=== PATIENT | female | born 1980 | race African-American/Black ===

== ENCOUNTER 2020-08-11 12:19 | Outpatient (REF) | payer OTHER, SELFPAY | END 2020-08-11 12:20 | disposition home or self-care (01) | LOC: HO.LAB 12:19 | PROVIDERS: Visit Provider Internal Medicine | DX: Z20.822 Contact with and (suspected) exposure to COVID-19 (principal) | CPT/HCPCS: C9803; U0003; U0005 ==

== ENCOUNTER 2020-08-17 14:04 | Outpatient (REF) | payer OTHER, SELFPAY ==
[2020-08-17 14:35] LABS: COVID-19 Test Negative (Negative)
== END 2020-08-17 14:05 | disposition home or self-care (01) ==
LOC: HO.LAB 14:04
PROVIDERS: Visit Provider Internal Medicine
DX: Z20.822 Contact with and (suspected) exposure to COVID-19 (principal)
CPT/HCPCS: 36415; 87635; C9803

== ENCOUNTER 2020-10-20 15:08 | Outpatient (REF) | payer OTHER, SELFPAY | END 2020-10-20 15:09 | disposition home or self-care (01) | LOC: HO.LAB 15:08 | PROVIDERS: Visit Provider Internal Medicine | DX: Z20.822 Contact with and (suspected) exposure to COVID-19 (principal) | CPT/HCPCS: C9803; U0003; U0005 ==

== ENCOUNTER 2020-12-15 13:29 | Outpatient (REF) | payer OTHER, SELFPAY ==
[2020-12-15 16:04] LABS: COVID-19 Test Negative (Negative)
== END 2020-12-15 13:30 | disposition home or self-care (01) ==
LOC: HO.LAB 13:29
PROVIDERS: PCP Internal Medicine; Visit Provider Internal Medicine
DX: Z20.822 Contact with and (suspected) exposure to COVID-19 (principal)
CPT/HCPCS: 36415; 87635; C9803

== ENCOUNTER 2020-12-30 06:46 | Emergency (ER) | payer OTHER, SELFPAY ==
[2020-12-30 07:05] VITALS: BP 120/74; PULSE 84; RESP 16; TEMP 37; O2SAT 100; BMI 27.3
--- NOTE | 2020-12-30 07:50 | ED.SKABFB ---
HPI - Skin/Abscess/Foreign Bdy General Chief complaint: Skin/Abscess/Foreign Body Stated complaint: rash/covid+ 12/20 Time Seen by Provider: 12/30/20 07:18 Source: patient Mode of arrival: ambulatory Limitations: no limitations History of Present Illness HPI narrative: Patient comes emergency room complaining of an itchy rash in her forearms and lower extremities. Patient states that she tested for COVID positive approximately 11 days ago. Patient states that she has a rash that started yesterday. Patient denies fever, no chills, denies any allergies to foods. Related Data Previous Rx's Medication Instructions Recorded acetaminophen 500 mg tablet 500 mg PO Q6H PRN 14 Days #56 tab 12/21/20 hydrocortisone 1 % topical cream 1 appl TOPICAL TID PRN #28.35 g 12/30/20 (Cortisone (hydrocortisone)) prednisone 20 mg tablet 20 mg PO DAILY #4 tab 12/30/20 Allergies Allergy/AdvReac Type Severity Reaction Status Date / Time aspirin [ASPIRIN] Allergy Intermediate SWELLING Unverified 01/08/20 17:45 penicillin V Allergy Unknown lip Verified 02/18/20 10:38 swelling amitriptyline AdvReac Unknown Unknown Verified 02/18/20 10:38 Review of Systems Review of Systems: Constitutional : No Weight loss, No Fever, No Chills, No Night Sweats, No Fatigue, No Malaise ENT/Mouth : No Hearing loss, No Ear Pain, No Nasal Congestion, No Sinus Pain, No Hoarseness, No sore throat, No Rhinorrhea, No Swallowing Difficulty Eyes: No Eye Pain, No Swelling, No Redness, No Foreign Body, No Discharge, No Vision Changes Cardiovascular : No Chest Pain, No SOB, No Dyspnea on Exertion, No Orthopnea, No Edema, No Palpitations Respiratory : No Cough, No Sputum, No Wheezing, No Smoke Exposure, No Dyspnea Gastrointestinal : No Nausea, No Vomiting, No Diarrhea, No Constipation, No abdominal Pain, No Hematochezia, No Melena Genitourinary : no irregular bleeding, No Dysuria, No Urinary Frequency, No Hematuria, No Urinary Incontinence, No Urgency, No Flank Pain, No Urinary Flow Changes, No Hesitancy Musculoskeletal : No joint pain, No Myalgias, No Joint Swelling Skin : Complaining of itchy rash in her upper extremities and lower extremities Neuro : No Weakness, No Numbness, No Paresthesias, No Loss of Consciousness, No Dizziness, No Headache Psych : No Anxiety/Panic, No Depression, No SI/HI/AH/VH, No Social Issues, Heme/Lymph: No Bruising, No Bleeding,No Lymphadenopathy Endocrine : No Polyuria, No Polydipsia, No Temperature Intolerance [facility] Past Medical History Surgical History History of section Family History Family History (Updated 02/18/20 @ 10:40 by Kaylynn Brady Zaria) Father Diabetes Hypertension Mother Hypertension Rheumatoid arthritis Paternal Grandfather Throat cancer Social History Social History Advance Directives: Yes Advance Directives Information Provided: No Advance Directives on File: No Patient : No Physical Exam Vital Signs: Vital Signs: Last Vital Signs Temp 98.6 F 12/30/20 07:05 Pulse 84 12/30/20 07:05 Resp 16 12/30/20 07:05 BP 120/74 12/30/20 07:05 Pulse Ox 100 12/30/20 07:05 Body Mass Index 27.3 Const: Other: Appearance: Alert. Oriented X3. No acute distress. Eyes: Pupils equal, round and reactive to light. ENT: Pharynx normal. Neck: Normal inspection. Neck supple. No lymph nodes noted. No crepitus CVS: Normal heart rate and rhythm. Pulses normal. Normal S1 and S2 Respiratory: No respiratory distress. Breath sounds normal. No Wheezing. No rales Abdomen: Soft and nontender. No rigidity. No distention. good BS x4 Skin: Skin warm and dry. Hives in forearms and arms, and thighs, none in abdomen or back Extremities: No lower extremity edema. No lower extremity edema. No Lacerations. No Rash Neuro: Oriented X 3. No motor deficit. No sensory deficit. Moving all extermities. No slurred speech. Course Course Course Narrative: Patient's COVID-19 results are still positive. Patient's rash is minimal. Patient will be provided with 1 dose of oral prednisone in the emergency room, patient will have more steroids at home and topical hydrocortisone. MDM - Skin/Abscess/Foreign Bdy Lab Data Labs: Lab Results 12/30/20 Range/Units 08:17 COVID-19 (DORIE) Positive A (Negative) COVID-19 Clin Com See Note Discharge Plan Discharge Clinical Impression: Urticaria Patient Disposition: Home, Self-Care Instructions: Urticaria (ED) Additional Instructions: Please follow-up with your primary care physician tomorrow. If you have any worsening or new symptoms, please return to the emergency room or call 911 Prescriptions: New prednisone 20 mg tablet 20 mg PO DAILY Qty: 4 RF: 0 hydrocortisone [Cortisone (hydrocortisone)] 1 % cream 1 appl topical TID PRN (Reason: itching) Qty: 28.35 RF: 0 No Action acetaminophen 500 mg tablet 500 mg PO Q6H PRN (Reason: fever) 14 Days Qty: 56 RF: 0
[2020-12-30] MEDS: predniSONE 10 MG TABLET 50 MG PO (08:15)
[2020-12-30 08:37] LABS: COVID-19 Test Positive (Negative); IDNOW Serial# 9DD0AD1C
[2020-12-30 09:40] VITALS: BP 105/49; PULSE 77; RESP 18; TEMP 36.6; O2SAT 100
--- NOTE | 2020-12-30 09:41 | PC.NURSE ---
Pt has unlabored resp. skin pwd. will f/u with PCP and remains in quarantine.
== END 2020-12-30 09:44 | disposition home or self-care (01) ==
PROVIDERS: Emergency Provider Emergency Medicine; PCP Internal Medicine
DX: L50.9 Urticaria, unspecified (principal); U07.1 COVID-19
CPT/HCPCS: 36415; 87635; 99283; 99284

== ENCOUNTER 2021-01-04 13:44 | Outpatient (REF) | payer OTHER, SELFPAY | END 2021-01-04 13:45 | disposition home or self-care (01) | LOC: HO.LAB 13:44 | PROVIDERS: PCP Internal Medicine; Visit Provider Internal Medicine | DX: Z20.822 Contact with and (suspected) exposure to COVID-19 (principal) | CPT/HCPCS: C9803; U0003; U0005 ==

== ENCOUNTER 2023-04-05 15:05 | Outpatient (AMB) | payer OTHER, SELFPAY ==
[2023-04-05 15:11] VITALS: BP 112/70; BMI 27.3
--- NOTE | 2023-04-05 15:11 | MHC.PC.OV ---
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: No Accompanied by: Self / Same As Patient Allergies aspirin [ASPIRIN] Allergy (Intermediate, Verified 04/05/23 15:26) SWELLING penicillin V Allergy (Unknown, Verified 04/05/23 15:26) lip swelling amitriptyline Adverse Reaction (Unknown, Verified 04/05/23 15:26) Unknown Medication List - Last Reconciled 04/05/23 by Barb Kinney MD ferrous sulfate 324 mg PO DAILY hydrocortisone 1% (Cortisone (hydrocortisone)) 1 appl topical TID PRN Tobacco use date assessed: 04/05/23 Dental Screening Dental Screen Date: 04/05/23 Did you have a dental visit in the last 12 months?: Yes Did you have a dental problem in the last 6 months where you did not have access to dental care?: No Was dental information given to patient?: Patient has dentist HPI HPI Comments History of Present Illness Details This is a 42-year-old female that comes for her physical exam. Has never had a mammogram. Last Pap smear was over 4 years ago. No chest pain or shortness of breath. No change in bowel habits. [facility] Surgical History History of section Family History Father Diabetes Hypertension Mother Hypertension Rheumatoid arthritis Paternal Grandfather Throat cancer Social History Household Members: Spouse and Children Housing: Apartment Are you a primary youth career specialist to a significant other at home: No Do you presently have visiting nurse or other home services: No Alcohol intake: never Patient Tobacco Use Status: Never used Tobacco e-Cigarette/Vaping Use: Never Used Second Hand Smoke Exposure: No service: No Current occupational status: unemployed Cognitive needs: No Hearing needs: No Vision needs: No Questionnaire PHQ-9 Over the last 2 weeks, how often have you been bothered by any of the following problems? 1. Little interest or pleasure in doing things: not at all 2. Feeling down, depressed, or hopeless: not at all 3. Trouble falling or staying asleep, or sleeping too much: not at all 4. Feeling tired or having little energy: not at all 5. Poor appetite or overeating: not at all 6. Feeling bad about yourself - or that you are a failure or have let yourself or your family down: not at all 7. Trouble concentrating on things, such as reading the newspaper or watching television: not at all 8. Moving or speaking so slowly that other people could have noticed. Or the opposite - being so fidgety or restless that you have been moving around a lot more than usual: not at all 9. Thoughts that you would be better off or of hurting yourself in some way: not at all Total score: 0 Depression Screening Interpretation: Negative Depression Screening Done: Yes 10904 - PHQ-9 Billing: Yes Source: Developed by Drs. Zachary Dowling, Chela Souza, Louie Naranjo and colleagues, with an educational obi from [employer]. Thrive Questionnaire Date Thrive assessed: 04/05/23 I am a: Patient What is your living situation today?: I have a steady place to live Within the past 12 months, did the food you bought not last and you didn't have the money to get more?: Never true Within the past 12 months, did you worry whether your food would run out before you got money to buy more?: Never true Do you have trouble paying for medicines?: No Do you have trouble getting transportation to medical appointments?: No Do you have trouble paying your heating and electricity bill?: No Do you have trouble taking care of your child, family member or friend?: No Do you have trouble with day-to-day activities such as bathing, preparing meals, shopping, managing finances, etc.?: No Are you currently unemployed and looking for a job?: No Are you interested in more education?: No Please select the resources that you would like help with: None Currently or been in a relationship where the following occur: no concerns reported AUDIT C Alcohol Use Questionnaire (AUDIT-C) 1. How often do you have a drink containing alcohol?: Never Total Score: 0 QUENTIN-7 AMB Questionnaire QUENTIN-7 Date QUENTIN - 7 assessed: 04/05/23 Feeling nervous, anxious, or on edge: 1 = Several days Not being able to stop or control worryin = Not at all Worrying too much about different things: 0 = Not at all Trouble relaxin = Not at all Being so restless that it is hard to sit still: 0 = Not at all Becoming easily annoyed or irritable: 0 = Not at all Feeling afraid as if something awful might happen: 0 = Not at all Total QUENTIN-7 score (0-4 normal; 5-9 mild; 10-14 moderate; 15-21 severe): 1 Source: Developed by Drs. Zachary Dowling, Chela Souza, Louie Naranjo and colleagues, with an educational obi from [employer]. QUENTIN-7 Assessment Billing QUENTIN-7 Assessment Tool: QUENTIN-7 Assessment 68863 Review of Systems Const All systems reviewed & are unremarkable except as noted in HPI and below Eyes Reports no additional complaints, Denies change in vision and Denies other visual disturbances Card Denies chest pain at rest, Denies chest pain with activity, Denies edema, Denies irregular heart rhythm, Denies claudication, Denies dyspnea, Denies dyspnea on exertion, Denies orthopnea, Denies paroxysmal nocturnal dyspnea and Denies slow heart rate Resp Denies cough, Denies dyspnea and Denies dyspnea on exertion GI Denies abdominal pain, Denies change in bowel habits, Denies excessive flatus, Denies nausea and Denies vomiting Denies urinary incontinence, Denies urinary hesitancy and Denies urinary urgency Musc Denies abnormal gait, Denies atrophy, Denies deformity and Denies limited range of motion Skin/Breast Denies bleeding lesions, Denies changing lesions and Denies rash Neuro Denies abnormal gait, Denies behavioral changes, Denies confusion and Denies lack of coordination Psych Denies behavioral changes and Denies confusion Physical exam (Primary Care) Vital Signs: Last Vital Signs BP 112/70 04/05/23 15:11 BMI result Body Mass Index 27.3 Tobacco/Smoking Status: Tobacco use Status Tobacco use date assessed 04/05/23 04/05/23 15:21 Patient Tobacco Use Status Never used Tobacco 04/05/23 15:19 e-Cigarette/Vaping Use Never Used 04/05/23 15:21 PHQ-9: PHQ-9 Score PHQ-9: Total score 0 04/05/23 15:21 Depression Screening Interpretation: Negative Thrive Assessment: Date of Thrive Assessment Date Thrive assessed 04/05/23 04/05/23 15:24 Currently or been in a relationship where the following occur: no concerns reported Const General: No confusion Orientation/consciousness: patient oriented x3 and No confusion HENMT Head: Yes normal to inspection, Yes normocephalic and Yes atraumatic Ears: external ears normal Eyes General: appearance normal, both eyes and all related structures Eyelids: Yes eyelids normal Conjunctivae: conjunctivae normal Neck Neck: Yes normal visual inspection and Yes supple Resp Effort & Inspection: normal respiratory effort Auscultation: clear to auscultation bilaterally Cardio Jugular venous distension: no JVD Rate: regular rate Rhythm: regular rhythm Heart sounds: S1 normal heart sound present and S2 normal heart sound present GI Inspection: Yes normal to inspection Palpation (GI): Soft to palpation and nontender Auscultation: normal bowel sounds Skin General skin exam: no rashes or lesions noted Neuro General: patient oriented x3, no focal motor deficits and No confusion Extrem General: Yes full ROM Psych Appearance: grossly normal Office Procedures Flu Questionnaire Does the patient have a severe egg allergy?: No Immunizations flu vacc [id number] 6mos up(PF) 60 mcg(15 mcgx4)/0.5 mL IM syringe Performing Provider: Barb Kinney MD [facility] Documented (not given) by: MANDO Lazo on 04/05/23 15:22 Reason Not Given: Patient Refused Assessment and Plan Assessment & Plan (1) Physical exam: Code(s): Z00.00 - Encounter for general adult medical examination without abnormal findings Plan: Repeat in a year. Orders: Orders MM screening mammo BI Today Z12.31 - Encounter for screening mammogram for malignant neoplasm of breast Complete Blood Count Auto Diff Today D64.9 - Anemia, unspecified Influenza [id number] Immunization Today Z23 - Encounter for immunization IRON PROFILE Today D64.9 - Anemia, unspecified Comprehensive [place]. Panel Fast Today Z00.00 - Encounter for general adult medical examination without abnormal findings Lipid Panel Today Z00.00 - Encounter for general adult medical examination without abnormal findings Referrals SIFTING OPERATOR Referral Z12.4 - Encounter for screening for malignant neoplasm of cervix Coding Level of Care Code Est Pt Prev Care 40-64y(36534) Diagnoses Physical exam Z00.00 Additional Codes QUENTIN-7 Assessment Billing - QUENTIN-7 Assessment Tool: QUENTIN-7 Assessment 24459 ([id number]) Time Spent (min) 31
== END 2023-04-05 15:35 | disposition home or self-care (01) ==
LOC: HO.HMGH 15:05
PROVIDERS: PCP Internal Medicine; Visit Provider Internal Medicine
DX: Z00.00 Encounter for general adult medical examination without abnormal findings (principal)
CPT/HCPCS: 99396

== ENCOUNTER 2023-05-14 11:02 | Outpatient (REF) | payer OTHER, SELFPAY ==
--- NOTE | ~2023-05-14 | MM_ITS ---
EXAMINATION: MM SCREENING DIGITAL BREAST TOMOSYNTHESIS, BILATERAL CLINICAL INFORMATION: Screening. Asymptomatic. COMPARISON: Mammography: This is a baseline mammogram. TECHNIQUE: Digital breast tomosynthesis is performed in both the craniocaudal and mediolateral oblique views along with computer-aided detection (CAD). Synthesized 2D images are generated from the tomosynthesis. FINDINGS: The breasts are heterogeneously dense, which may obscure small masses (ACR BI-RADS breast composition Category c). There are no significant masses, abnormal calcifications, or other abnormalities. MM/MM tomosynthesis screening BI IMPRESSION: No mammographic evidence of malignancy. ASSESSMENT: BI-RADS BI-RADS 1 - Negative RECOMMENDATION: Routine annual mammography screening. 1 year F/U This examination should not preclude the clinical evaluation of a suspicious palpable abnormality. This patient's information was entered into a reminder system with a target due date for their next mammogram.
[2023-05-14 11:22] LABS: MANUAL DIFF FLAG NO
[2023-05-14 11:50] LABS: Basophils Absolute Auto 0.1 X10*3/uL (0.0-0.2); Basophils Percent Auto 1.4 % (0-2); Eosinophils Absolute Auto 0.1 X10*3/uL (0.0-0.4); Imm Gran Abs Auto 0.01 X10*3/uL (0.00-0.03); Imm Gran Pct Auto 0.2 % (0.0-0.4); Lymphocytes Absolute Auto 2.3 X10*3/uL (1.2-4.9); Lymphocytes Percent Auto 47.6 % (20-40); Mean Corpuscular HGB Conc 32.4 g/dl (31.0-35.0); Mean Corpuscular Hemoglobin 29.1 pg (27.0-33.0); Mean Corpuscular Volume 89.6 fL (80.0-98.0); Mean Platelet Volume 10.5 fL (9.4-12.3); Monocytes Absolute Auto 0.6 X10*3/uL (0.1-1.2); Monocytes Percent Auto 11.8 % (2-11); Neutrophils Absolute Auto 1.8 x10*3/uL (2.0-8.3); Platelet Count 201 X10*3/uL (160-400); Red Blood Count 4.13 X10*6/uL (4.20-5.50); Red Cell Distribution Width 13.4 % (11.0-16.0); White Blood Count 4.8 X10*3/uL (4.8-10.8)
[2023-05-14 12:17] LABS: Alanine Aminotransferase 19 U/L (0-31); Albumin Level 4.1 g/dL (3.5-5.0); Alkaline Phosphatase 51 U/L (39-117); Anion Gap 10 (12-20); Aspartate Amino Transferase 22 U/L (5-31); Bilirubin Total 0.4 mg/dL (0.0-1.0); Blood Urea Nitrogen 9 mg/dL (9-16); Calcium 9.5 mg/dL (8.4-10.2); Carbon Dioxide 27 mmol/L (22-29); Chloride 107 mmol/L (96-108); Cholesterol 205 mg/dL (<200); Estimated Glomerular Filt Rate > 60; Glucose Fasting 92 mg/dL (60-99); HDL Cholesterol 70 mg/dL (>40); Iron 62 mcg/dL (30-160); LDL Cholesterol Calculated 127 mg/dL (<100); Percent Iron Saturation 22 % (15-50); Potassium 4.3 mmol/L (3.3-5.1); Sodium 140 mmol/L (135-145); Total Iron Binding Capacity 286 mcg/dL (228-428); Total Protein 7.5 g/dL (6.5-8.0); Triglycerides 41 mg/dL (<150); Unsaturated Iron Binding 224 ug/dL
== END 2023-05-14 11:03 | disposition home or self-care (01) ==
LOC: HO.MAMMO 11:02
PROVIDERS: PCP Internal Medicine; Visit Provider Internal Medicine
DX: Z00.00 Encounter for general adult medical examination without abnormal findings (principal); D64.9 Anemia, unspecified; Z12.31 Encounter for screening mammogram for malignant neoplasm of breast
CPT/HCPCS: 36415; 77063; 77067; 80053; 80061; 83540; 85025

== ENCOUNTER → 2023-05-14 15:30 | Outpatient (BNV) | payer OTHER, SELFPAY | PROVIDERS: PCP Internal Medicine; Visit Provider Radiology Diagnostic Radiology | DX: Z12.31 Encounter for screening mammogram for malignant neoplasm of breast (principal) | CPT/HCPCS: 77063; 77067 ==

== ENCOUNTER 2023-09-18 15:33 | Emergency (ER) | payer OTHER, SELFPAY ==
--- NOTE | ~2023-09-18 | XR_ITS ---
EXAMINATION: XR KNEE, RIGHT CLINICAL INFORMATION: Pain, injury COMPARISON: None available. TECHNIQUE: Four views of the right knee. FINDINGS: No fracture. Trace joint effusion. Alignment is anatomic. Joint spaces are maintained. No abnormal soft tissue calcification. XR/XR knee RT 4V IMPRESSION: No acute bony abnormality.
--- NOTE | ~2023-09-18 | XR_ITS ---
EXAMINATION: XR LUMBOSACRAL SPINE CLINICAL INFORMATION: Pain, injury COMPARISON: Lumbar spine 12/16/2019 TECHNIQUE: Three views of the lumbosacral spine. FINDINGS: There are 5 nonrib-bearing lumbar-type vertebral bodies. Hypoplastic ribs are seen at T12. The height of the lumbar vertebral bodies is well-maintained. There is straightening of the usual lumbar lordosis which can be seen with muscle spasm. There is no significant disc space narrowing. No spondylolisthesis. XR/XR lumbar spine 2-3V IMPRESSION: 1. Muscle spasm. 2. No acute bony abnormality.
[2023-09-18 15:49] VITALS: BP 123/57; PULSE 73; RESP 16; TEMP 37; O2SAT 99; BMI 27.5
--- NOTE | 2023-09-18 15:50 | ED.GENADULT ---
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 Symptoms began while she was removing laundry from the dryer and bending/twisting. Taking ibuprofen at home with little relief. Worse with walking/standing. States she stands at work for 8 hours at a time. Denies saddle anesthesia or bowel or bladder incontinence. Denies fevers, weight loss, history of cancer, IV drug use. Denies dysuria, frequency, hematuria or other urinary symptoms. complaint: back pain Onset (ago): day(s) Location: back Radiation: extremity and distal Severity: severe Quality: aching and sharp Pain Consistency: colicky Relieving factors: rest Exacerbating factors: movement Associated symptoms: denies other symptoms Treatments prior to arrival: NSAID Related Data Previous Rx's ?Medication ?Instructions ?Recorded hydrocortisone 1 % topical cream 1 appl topical TID PRN itching 12/30/20 (Cortisone (hydrocortisone)) #28.35 grams ferrous sulfate 324 mg (65 mg 324 mg PO DAILY #30 tabs 07/24/22 iron) tablet,delayed release cyclobenzaprine 10 mg tablet 10 mg PO TID PRN muscle spasm #10 09/18/23 tabs ibuprofen 800 mg tablet 800 mg PO Q8H PRN pain #14 tabs 09/18/23 lidocaine 5 % topical patch 1 patch topical DAILY #15 ea 09/18/23 Allergies Allergy/AdvReac Type Severity Reaction Status Date / Time aspirin [ASPIRIN] Allergy Intermediate SWELLING Verified 09/18/23 15:52 penicillin V Allergy Unknown lip Verified 09/18/23 15:52 swelling amitriptyline AdvReac Unknown Unknown Verified 09/18/23 15:52 Review of Systems Review of Systems: As per HPI. Yes all other systems are reviewed and are negative Constitutional: Constitutional: Reports as per HPI PMF Past Medical History Surgical History History of section Family History Family History (Updated 04/05/23 @ 15:29 by Barb Kinney MD) Father Diabetes Hypertension Mother Hypertension Rheumatoid arthritis Paternal Grandfather Throat cancer Social History Social History Household Members: Spouse and Children Housing: Apartment Are you a primary health care / medical job titles to a significant other at home: No Do you presently have visiting nurse or other home services: No Alcohol intake: never Patient Tobacco Use Status: Never used Tobacco e-Cigarette/Vaping Use: Never Used Second Hand Smoke Exposure: No service: No Current occupational status: unemployed Cognitive needs: No Hearing needs: No Vision needs: No Physical Exam ED Vital Signs: Vital Signs - 24 hr 09/18/23 15:49 Temperature 98.6 F Pulse Rate 73 Respiratory Rate 16 Blood Pressure 123/57 L Pulse Oximetry 99 Oxygen Delivery Method Room Air BMI result Body Mass Index 27.5 Vital signs have been reviewed and appear to be correct. Blood pressure normal. Heart rate normal. Respiratory rate normal. Temperature normal. Oxygen saturation normal. Const General: cooperative, healthy appearing and no acute distress Orientation/consciousness: oriented to person, oriented to place, oriented to time and patient oriented x3 Limitations: no limitations HENMT Head: Yes normocephalic and Yes atraumatic Ears: external ears normal General nose exam: Normal external nose present Face and sinus: Yes face symmetric Mouth: oropharynx normal and moist mucous membranes Throat: Yes uvula midline Eyes Pupils: Equal, round and reactive pupils present Neck Neck: Yes normal visual inspection and Yes supple Resp Effort & Inspection: normal respiratory effort and able to speak in complete sentences Auscultation: clear to auscultation bilaterally Cardio Rate: regular rate Rhythm: regular rhythm Heart sounds: S1 normal heart sound present and S2 normal heart sound present GI Palpation (GI): Soft to palpation and nontender Auscultation: normoactive bowel sounds General: Yes no CVA tenderness Back/Spine/Pelvis Back: no CVA tenderness Thoracic/Lumbar Spine: thoracic and lumbar spine normal to inspection, thoraco-lumbar ROM normal, pain with thoraco-lumbar ROM, paraspinal muscle tenderness on the right in the lower thoracic, in the upper lumbar and in the mid lumbar, thoraco-lumbar spasm on the right in the upper lumbar, No thoracic spinal tenderness and No lumbar spinal tenderness Skin General skin exam: elasticity normal and turgor normal Neuro General: oriented to person, oriented to place, oriented to time, patient oriented x3, moves all extremities, no focal motor deficits and CN's II-XI intact bilaterally Cranial nerves: Yes Equal, round and reactive pupils present Cognition (Neuro): normal cognition Extrem General: Yes full ROM, Yes no pedal edema and Yes no calf tenderness Right lower extremity: knee Details: normal to inspection, normal ROM and knee ligament exam normal; no tenderness and no swelling Psych Mental Status: mental status grossly normal Affect: normal affect Thought process: Normal thought process present Course Course Course Narrative: RME performed by Clementina Stern PA-C. Patient is a 43 year old assigned female at presenting to the emergency department with right sided low back pain and right knee pain. Patient states whenever she moves, her right sided pain gets worse. Detailed physical exam and review of systems are deferred to the rubber gasket inspector trimmer. Imaging ordered. Patient placed back in the waiting room pending room availability and results. Medical Decision Making Medical Decision Making [facility] Narrative: Patient is a 43-year-old Ethiopian speaking female presenting to the emergency department with complaint or right lower back pain radiating down right upper leg to right knee since yesterday. On exam patient is awake, A+Ox3, VS WNL, afebrile, normal neurological exam without focal deficits, physical exam findings as above. Given reported symptoms and physical exam findings, initial differential includes lumbar strain, lumbar radiculopathy, degenerative disc disease, disc herniation, spinal stenosis, spondylosis. Less likely vertebral fracture. Do not suspect malignancy/mass, SEA, cauda equina/cord compression. X-ray lumbar spine notable for muscle spasm, no acute bony abnormality. X-ray right knee shows no evidence of acute bony abnormality, trace effusion. My interpretation is in agreement with the radiologist's interpretation. Physical exam finding consistent with muscle spasm. You will treat with course of Flexeril, lidocaine patches, advised patient to alternate Tylenol and ibuprofen, use warm bath with Epsom salt. Instructed patient to follow-up with PCP for any ongoing symptoms that she may need physical therapy. Return precautions discussed at bedside. Patient verbalized understanding of and agreement with plan. Differential Diagnosis Differential Diagnoses: The differential diagnosis associated with the presentation includes As per MDM. Independent Interpretation I performed an independent interpretation of an: Plain X-Ray Interpretation: X-ray lumbar spine notable for muscle spasm, no acute bony abnormality. X-ray right knee shows no evidence of acute bony abnormality, trace effusion. Radiology Impression Discussion of test interpretation with radiology: I have reviewed the radiologist's reading. Radiologist Impression: XR/XR knee RT 4V IMPRESSION: No acute bony abnormality. XR/XR lumbar spine 2-3V IMPRESSION: 1. Muscle spasm. 2. No acute bony abnormality. External Record Review External record reviewed: Inpatient record, Office record and Outpatient record Prescription Management I considered prescription management with: Pain Medication and Other Discharge Plan Discharge Clinical Impression: Lumbar paraspinal muscle spasm Patient Disposition: Home, Self-Care Instructions: Low Back Strain (ED), Muscle Spasm (ED) Additional Instructions: You were evaluated in the emergency department today for back pain. Your evaluation did not show signs of medical conditions requiring emergent intervention at this time. We recommended that you use ibuprofen or Tylenol per package directions every 6 hours as needed for pain. If necessary, you can alternate these medications so that you take one medication every 3 hours. For instance, at noon take ibuprofen, then at 3:00 p.m. take Tylenol, then at 6:00 p.m. take ibuprofen. You have been prescribed a muscle relaxer which you may take every 8 hours as needed for spasms. You have been prescribed 5% topical lidocaine patches which you can wear for up to 12 hours in a 24 hour period. Do not apply heat directly over the patches. Please schedule an appointment for follow-up with your primary care physician this week for further evaluation of your symptoms. Return to the emergency department if you experience worsening back pain, difficulty walking, fevers, numbness, tingling, incontinence, groin numbness or tingling, or any other concerning symptoms. Prescriptions: New ibuprofen 800 mg tablet 800 mg PO Q8H PRN (Reason: pain) Qty: 14 0RF cyclobenzaprine 10 mg tablet 10 mg PO TID PRN (Reason: muscle spasm) Qty: 10 0RF lidocaine 5 % adhesive patch,medicated 1 patch topical DAILY Qty: 15 0RF Rx Instructions: leave on most painful area for up to 12 hrs No Action hydrocortisone [Cortisone (hydrocortisone)] 1 % cream 1 appl topical TID PRN (Reason: itching) Qty: 28.35 0RF ferrous sulfate 324 mg (65 mg iron) Tablet,Delayed Release (Dr/Ec) 324 mg PO DAILY Qty: 30 2RF Stand Alone Forms: Work/School Release Print Language: Ethiopian
[2023-09-18 18:15] VITALS: BP 100/79; PULSE 88; RESP 20; TEMP 37.1; O2SAT 98
== END 2023-09-18 18:16 | disposition home or self-care (01) ==
PROVIDERS: Emergency Provider Emergency Medicine; PCP Internal Medicine
DX: M62.830 Muscle spasm of back (principal); M54.50 Low back pain, unspecified; M25.561 Pain in right knee
CPT/HCPCS: 72100; 73564; 99283; 99284

== ENCOUNTER 2023-09-24 20:12 | Emergency (ER) | payer OTHER, SELFPAY ==
[2023-09-24 20:41] VITALS: BP 115/54; PULSE 94; RESP 16; TEMP 37.2; O2SAT 100; BMI 28.2
== END 2023-09-25 04:04 | disposition left against medical advice (07) ==
PROVIDERS: Emergency Provider Emergency Medicine; PCP Internal Medicine
DX: M54.50 Low back pain, unspecified (principal); M79.604 Pain in right leg; Z53.21 Procedure and treatment not carried out due to patient leaving prior to being seen by health care provider
CPT/HCPCS: 99281

== ENCOUNTER 2023-12-21 10:27 | Outpatient (AMB) | payer OTHER, SELFPAY ==
[2023-12-21 11:02] VITALS: BP 110/68; BMI 29.8
--- NOTE | 2023-12-21 11:02 | A.OFFVIS_ITS ---
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 Ref (jordanian) Information Interpreted: clinical only Special Education Paraeducator: Special Education Paraeducator Present Allergies aspirin [ASPIRIN] Allergy (Intermediate, Verified 12/21/23 11:03) SWELLING penicillin V Allergy (Unknown, Verified 12/21/23 11:03) lip swelling amitriptyline Adverse Reaction (Unknown, Verified 12/21/23 11:03) Unknown Medication List - Last Reconciled 12/21/23 by Lainey Chacon CNM ferrous sulfate 324 mg PO DAILY hydrocortisone 1% (Cortisone (hydrocortisone)) 1 appl topical TID PRN ibuprofen 800 mg PO Q8H PRN Is last menstrual period known: Yes Last menstrual period: 12/11/23 Do you need a note to return to daycare/school/sports/work: No HPI HPI 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 Been a few years since she has had a records analyst exam and Pap. [facility] and she went there looking for she they said she had moved. 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 She has sexually active with her and does not have any concerns but is open to testing for STIs for screening purposes. While the Pap smear was being done she said she remembered that she did have some abnormal cells in [place] but she does not remember any details. She got nervous recently because her last period which came on time on the lingered on with a little spotting after it ended and she started wondering if she could have been but there was no other issue no other symptoms and she was not late with her. At all. She had 2 C sections 1 for her 1st because she would not dilate past 3 cm for an 8 lb baby and her 2nd was a twin gestation and combined weight for both babies was between 11 and 12 lb. She sometimes feels that after she urinates she still has to urinate. [facility] Surgical History (Updated 12/21/23 @ 11:05 by Anitha Fenton [facility]) History of bilateral tubal ligation History of section Family History Father Diabetes Hypertension Mother Hypertension Rheumatoid arthritis Paternal Grandfather Throat cancer Social History Household Members: Spouse and Children Housing: Apartment Are you a primary director of career resources to a significant other at home: No Do you presently have visiting nurse or other home services: No Alcohol intake: never Patient Tobacco Use Status: Never used Tobacco e-Cigarette/Vaping Use: Never Used Second Hand Smoke Exposure: No service: No Current occupational status: unemployed Cognitive needs: No Hearing needs: No Vision needs: No Female Reproductive History Menstrual Age of Menarche: 11 Duration of menses: 3-5 days Date of last menstrual period: 12/11/23 control method: permanent sterilization Total pregnancies: 2 Full term: 3 History of abnormal pap smear: No (previous pap ,unknown) Date of Mammogram: 05/14/23 (negative) Physical Exam Vital Signs: Last Vital Signs BP 110/68 12/21/23 11:02 BMI result Body Mass Index 29.8 Const General: healthy appearing, comfortable, no acute distress, well developed and alert Nutritional Appearance: average body habitus Orientation/consciousness: patient oriented x3 Limitations: no limitations HEENT Head: Yes normocephalic Neck Neck: Yes normal visual inspection Chest Chest palpation & inspection: normal inspection of the chest Breast/axilla inspection: normal inspection of the breasts and normal inspection of the axillae Breast/axilla palpation: normal palpation of the breasts and normal palpation of the axillae Resp Effort & Inspection: normal respiratory effort GI Inspection: Yes normal to inspection, No Abdominal wall edema and No distended Palpation (GI): Soft to palpation and nontender Other: Normal external exam nulliparous pink healthy cervix with no abnormal discharge and no bleeding noted cervix is long close thick mobile nontender uterus is midposition to anteverted mobile nontender adnexa nontender good tone with Kegel. General: Yes bladder normal to palpation External Female Exam: normal external appearance and normal appearance of the urethra Speculum Exam - Vagina: normal appearance of the vagina, normal palpation and normal vaginal discharge Speculum Exam - Cervix: normal appearance of the cervix, normal palpation and nontender Bimanual exam- vagina & uterus: normal bimanual exam, normal palpation, uterine size normal, bladder normal to palpation, consistency normal, normal palpation, uterine mobility normal, uterine shape normal, No Cervical tenderness present, non-tender and no cervical motion tenderness Bimanual Exam- Adnexa, other: normal adnexae, no masses, normal and No adnexal tenderness Neuro General: patient oriented x3 Results Reviewed Results Reviewed: Patient: Afshan Avitia MR#: [id number] : 1980 Acct:[id number] Age/Sex: 42 / F ADM Date: 05/14/23 Loc: HO.MAMMO Attending Dr: Barb Kinney MD Ordering Physician: Barb Catherine MD Results: 1Negative Date of Service: 05/14/23 Follow Up: 1 Year From Original Mammogram Procedure(s): MM tomosynthesis screening BI Accession Number(s): [id number] cc: Barb Catherine MD~ EXAMINATION: MM SCREENING DIGITAL BREAST TOMOSYNTHESIS, BILATERAL CLINICAL INFORMATION: Screening. Asymptomatic. COMPARISON: Mammography: This is a baseline mammogram. TECHNIQUE: Digital breast tomosynthesis is performed in both the craniocaudal and mediolateral oblique views along with computer-aided detection (CAD). Synthesized 2D images are generated from the tomosynthesis. FINDINGS: The breasts are heterogeneously dense, which may obscure small masses (ACR BI-RADS breast composition Category c). There are no significant masses, abnormal calcifications, or other abnormalities. MM/MM tomosynthesis screening BI IMPRESSION: No mammographic evidence of malignancy. ASSESSMENT: BI-RADS BI-RADS 1 - Negative RECOMMENDATION: Routine annual mammography screening. 1 year F/U This examination should not preclude the clinical evaluation of a suspicious palpable abnormality. This patient's information was entered into a reminder system with a target due date for their next mammogram. 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 Code(s): R39.15 - Urgency of urination Category: Medical (3) Screening for cervical cancer: Comment: pap done 12/21/23, ( pap states some abnormal pap in [place]), Code(s): Z12.4 - Encounter for screening for malignant neoplasm of cervix Category: Medical (4) Well woman exam with routine gynecological exam: Code(s): Z01.419 - Encounter for gynecological examination (general) (routine) without abnormal findings Category: Medical Plan -----Discussed in this visit the following: healthy balanced diet, regular and consistent exercise, getting recommended health screens, doing the best she can for her particular health concerns, kegel exercises, pap smear screening and followup recommendations, mammography screening and SBE, normal changes in cycles in her life stage--- . We will send urine for clean-catch culture just to be sure though her symptoms are not very evident Orders placed for screening for HIV hep B hep C syphilis. One of the screens already ordered by her primary along with other immunizations so allergies. Suggested to the patient she may want to get the labs done out at the hospital so she can get them all done together. I do not expect to have a finding of a UTI but I asked the patient to call Sunday or Sunday for the results. RTC 1 year. Orders: Orders Syphilis Screen Today Z11.3 - Encounter for screening for infections with a predominantly sexual mode of transmission CT NG by PCR Today N89.8 - Other specified noninflammatory disorders of vagina Bacterial Vaginosis Panel Today N89.8 - Other specified noninflammatory disorders of vagina PAP + HPV E6/E7 rfx 18/45 Today Z01.419 - Encounter for gynecological examination (general) (routine) without abnormal findings Hepatitis C Antibody Today Z11.3 - Encounter for screening for infections with a predominantly sexual mode of transmission HIV Ab/Ag Today Z11.3 - Encounter for screening for infections with a predominantly sexual mode of transmission Urine Culture Today R39.15 - Urgency of urination Urine Culture Today R39.15 - Urgency of urination Coding Level of Care Code New Pt Prev Care 40-64y([id number]) Diagnoses Encounter for screening examination for sexually transmitted disease Z11.3 Urinary urgency R39.15 Screening for cervical cancer Z12.4 Well woman exam with routine gynecological exam Z01.419
== END 2023-12-21 12:16 | disposition home or self-care (01) ==
PROVIDERS: PCP Internal Medicine; Visit Provider Advanced Practice Midwife
DX: Z01.419 Encounter for gynecological examination (general) (routine) without abnormal findings (principal); R39.15 Urgency of urination
CPT/HCPCS: 99386

== ENCOUNTER 2023-12-21 10:27 | Outpatient (REF) | payer OTHER, SELFPAY ==
[2023-12-22 06:14] LABS: CT PCR NOT DETECTED (Not Detect.); NG PCR NOT DETECTED (Not Detect.)
[2023-12-22 11:15] LABS: Bacterial Vaginosis PCR NEGATIVE (Negative); Candida Group PCR NOT DETECTED (Not Detect); Candida glab krusei PCR NOT DETECTED (Not Detect); Trichomonas vaginalis PCR NOT DETECTED (Not Detect)
[2023-12-28 15:53] LABS: HPV mRNA E6/E7 Not Detected (Not Detected)
== END 2023-12-21 10:28 | disposition home or self-care (01) ==
LOC: HO.LAB 10:27
PROVIDERS: PCP Internal Medicine; Visit Provider Advanced Practice Midwife
DX: N89.8 Other specified noninflammatory disorders of vagina (principal); R39.15 Urgency of urination; Z11.3 Encounter for screening for infections with a predominantly sexual mode of transmission; Z01.419 Encounter for gynecological examination (general) (routine) without abnormal findings; Z12.4 Encounter for screening for malignant neoplasm of cervix
CPT/HCPCS: 0352U; 36415; 87086; 87491; 87591; 87624; 88175; 99386

== ENCOUNTER 2024-01-24 09:32 | Outpatient (REF) | payer OTHER, SELFPAY | END 2024-01-24 09:33 | disposition home or self-care (01) | LOC: HO.LNP 09:32 | PROVIDERS: PCP Internal Medicine; Visit Provider Advanced Practice Midwife | DX: N93.9 Abnormal uterine and vaginal bleeding, unspecified (principal); N92.1 Excessive and frequent menstruation with irregular cycle | CPT/HCPCS: 99212 ==

== ENCOUNTER 2024-01-24 09:32 | Outpatient (AMB) | payer OTHER, SELFPAY ==
--- NOTE | 2024-01-24 09:33 | A.OFFVIS_ITS ---
Vital Signs 01/24/24 09:46 BP 120/70 Intake Visit Reasons: prolong bleeding Protective Signal Installer Helper Required: Yes Protective Signal Installer Helper Language: Teamcenter Consultant Name: Arley () Information Interpreted: non-clinical & clinical Service Liaison Representative: Service Liaison Representative Present (Kary) Accompanied by: Spouse Allergies aspirin [ASPIRIN] Allergy (Intermediate, Verified 01/24/24 09:42) SWELLING penicillin V Allergy (Unknown, Verified 01/24/24 09:42) lip swelling amitriptyline Adverse Reaction (Unknown, Verified 01/24/24 09:42) Unknown Is last menstrual period known: Yes Last menstrual period: 01/11/24 HPI Comments Details: Patient is here today with her who presents as her auto parts delivery driver his name is Arley. Patient refusal form for hospital auto parts delivery driver signed. She reports her cycles are regular lasting 4-5 days but over the last 2 cycles she has had continuous spotting, LMP March 12 and still spotting today. She denies any pelvic pain or urinary symptoms, or vaginal discharge or odor, history of bilateral tubal ligation, she has slight external irritation and some bloating. Last Pap December 20 was unsatisfactory with blood obscuring next Pap scheduled 03/12/2024. [facility], [facility] Surgical History (Updated 12/21/23 @ 11:05 by Anitha Fenton CMA) History of bilateral tubal ligation History of section Family History Father Diabetes Hypertension Mother Hypertension Rheumatoid arthritis Paternal Grandfather Throat cancer Social History Household Members: Spouse and Children Housing: Apartment Are you a primary pet caregiver to a significant other at home: No Do you presently have visiting nurse or other home services: No Alcohol intake: never Patient Tobacco Use Status: Never used Tobacco e-Cigarette/Vaping Use: Never Used Second Hand Smoke Exposure: No service: No Current occupational status: unemployed Cognitive needs: No Hearing needs: No Vision needs: No Female Reproductive History Menstrual Age of Menarche: 11 Date of last menstrual period: 01/11/24 Review of Systems Const All systems reviewed & are unremarkable except as noted in HPI and below Physical Exam Vital Signs: Last Vital Signs BP 120/70 01/24/24 09:46 Const General: cooperative, healthy appearing and no acute distress Orientation/consciousness: patient oriented x3 GI Inspection: Yes normal to inspection Palpation (GI): Soft to palpation and Other GI palpation findings present (Non tender) Rectal Exam - Female: visual inspection normal General: Yes bladder normal to palpation External Female Exam: normal appearance of the urethra Speculum Exam - Vagina: normal appearance of the vagina, normal palpation, normal vaginal discharge and vaginal bleeding Speculum Exam - Cervix: normal appearance of the cervix and normal palpation Bimanual exam- vagina & uterus: normal bimanual exam, normal palpation, uterine size normal, bladder normal to palpation, normal palpation, uterine shape normal and non-tender Bimanual Exam- Adnexa, other: normal adnexae OB/external & speculum: vaginal bleeding Neuro General: patient oriented x3 Assessment & Plan Assessment & Plan (1) Abnormal uterine bleeding (AUB): Code(s): N93.9 - Abnormal uterine and vaginal bleeding, unspecified Category: Medical Plan Discussed: Workup to include pelvic ultrasound, GC chlamydia, BV panel, UPT-negative. CBC and TSH ordered. Consider Mirena IUD for cycle control-booklet provided in Hebrew. Follow up in person pending test results. Plan Pap at next visit if not bleeding. Multiple causes for abnormal uterine bleeding reviewed. Consider EMB if indicated. If any heavy or prolonged bleeding to call the office sooner for immediate evaluation. All of her questions and concerns were addressed to the best of my ability and shared decision making. She is agreeable to the plan of care. This note is constructed using voice recognition software. While every effort has been made to ensure accuracy, squirrel man errors may have been included. Orders: Orders US pelvic and transvaginal Today N93.9 - Abnormal uterine and vaginal bleeding, unspecified Thyroid Stimulating Hormone Today N92.1 - Excessive and frequent menstruation with irregular cycle, N93.9 - Abnormal uterine and vaginal bleeding, unspecified CT NG by PCR Today N93.9 - Abnormal uterine and vaginal bleeding, unspecified Complete Blood Count no Diff Today N93.9 - Abnormal uterine and vaginal blee ding, unspecified Bacterial Vaginosis Panel Today N93.9 - Abnormal uterine and vaginal bleeding, unspecified Coding Level of Care Code Est Pt Level 4 (39710) Diagnoses Abnormal uterine bleeding (AUB) N93.9
[2024-01-24 09:46] VITALS: BP 120/70
== END 2024-01-24 10:17 | disposition home or self-care (01) ==
PROVIDERS: PCP Internal Medicine; Visit Provider Advanced Practice Midwife
DX: N93.9 Abnormal uterine and vaginal bleeding, unspecified (principal)
CPT/HCPCS: 99214

== ENCOUNTER 2024-01-24 10:20 | Outpatient (REF) | payer OTHER, SELFPAY ==
[2024-01-24 10:47] LABS: Hematocrit 36.8 % (37.0-47.0); Hemoglobin 12.2 g/dl (12.0-16.0); Mean Corpuscular HGB Conc 33.2 g/dl (31.0-35.0); Mean Corpuscular Volume 87.6 fL (80.0-98.0); Mean Platelet Volume 10.1 fL (9.4-12.3); Platelet Count 221 X10*3/uL (160-400); Red Cell Distribution Width 13.2 % (11.0-16.0); White Blood Count 4.7 X10*3/uL (4.8-10.8)
[2024-01-24 11:32] LABS: Thyroid Stimulating Hormone 0.71 uIU/mL (0.32-4.0)
[2024-01-24 15:38] LABS: CT PCR NOT DETECTED (Not Detect.); NG PCR NOT DETECTED (Not Detect.)
[2024-01-25 09:55] LABS: Bacterial Vaginosis PCR NEGATIVE (Negative); Candida Group PCR NOT DETECTED (Not Detect); Candida glab krusei PCR NOT DETECTED (Not Detect); Trichomonas vaginalis PCR NOT DETECTED (Not Detect)
== END 2024-01-24 10:21 | disposition home or self-care (01) ==
LOC: HO.LAB 10:20
PROVIDERS: PCP Internal Medicine; Visit Provider Advanced Practice Midwife
DX: N93.9 Abnormal uterine and vaginal bleeding, unspecified (principal); N92.1 Excessive and frequent menstruation with irregular cycle
CPT/HCPCS: 0352U; 84443; 85027; 87491; 87591

== ENCOUNTER 2024-01-29 11:28 | Outpatient (REF) | payer OTHER, SELFPAY ==
--- NOTE | ~2024-01-29 | US_ITS ---
EXAMINATION: US PELVIS CLINICAL INFORMATION: Abnormal uterine and vaginal bleeding. LMP approximately 01/11/2024. COMPARISON: None available. TECHNIQUE: Ultrasound of the pelvis is performed using both transabdominal and transvaginal transducers along with Doppler. Transvaginal imaging is performed due to inadequate visualization transabdominally. FINDINGS: Anteverted uterus with normal morphology measuring 10.2 x 4 x 5.2 cm. Subjective heterogeneity of the myometrium. A 0.5 cm intramural upper uterine observation this suggestive of a fibroid. Homogeneous endometrium measuring 0.8 cm in thickness. Ovaries demonstrate preserved flow on color Doppler at the moment of this examination. The right ovary measures 1.5 x 1.8 x 1.8 cm, 2.5 mL and the left ovary measures 3.2 x 2.3 x 1.9 cm, 7.3 mL. There is a 0.9 x 1 x 0.9 cm cystic observation in the right ovary with heterogeneous avascular debris and a 2. 2 x 2 by 1.7 cm cystic observation in the left ovary with some thin peripheral septations as well as peripheral tumefactive avascular debris. No extraovarian adnexal mass. No free fluid. US/US pelvic and transvaginal IMPRESSION: 1. Subjective heterogeneity of the uterine myometrium that could indicate adenomyosis in the appropriate clinical context. 2. Small 0.5 cm upper intramural uterine lesion most suggestive of a fibroid. 3. Complicated cysts in both ovaries, possibly hemorrhagic cysts. Recommend follow-up with pelvic ultrasound in 6-8 weeks. Electronically signed by: Zabrina Clancy MD 01/29/2024 03:30 PM EDT
== END 2024-01-29 11:29 | disposition home or self-care (01) ==
LOC: HO.US 11:28
PROVIDERS: PCP Internal Medicine; Visit Provider Advanced Practice Midwife
DX: N93.9 Abnormal uterine and vaginal bleeding, unspecified (principal)
CPT/HCPCS: 76830; 76856

== ENCOUNTER 2024-02-06 07:50 | Outpatient (AMB) | payer OTHER, SELFPAY ==
--- NOTE | 2024-02-06 07:54 | MHC.OFFVIS ---
Intake Visit Reasons: Ultrasound Results/OK per aCrolin Skoog Patching Machine Operator Required: Yes Skoog Patching Machine Operator Language: Buckle Gluer Services: Skoog Patching Machine Operator Offered & Declined Skoog Patching Machine Operator Name: Arley Accompanied by: Spouse Allergies aspirin [ASPIRIN] Allergy (Intermediate, Verified 02/06/24 07:56) SWELLING penicillin V Allergy (Unknown, Verified 02/06/24 07:56) lip swelling amitriptyline Adverse Reaction (Unknown, Verified 02/06/24 07:56) Unknown Is last menstrual period known: Yes Last menstrual period: 01/11/24 HPI Comments Details: Patient is here today for a follow up test results with her , Arley who it presents as her spanish interpreter additionally, she declines spanish interpreter services. History of abnormal uterine bleeding. Pap smear was deferred until today ude to AUB. Labs reviewed TSH 0.71 H&H 12 0.7 back/36.2 on January 23. Previous cultures are all negative. She reports bilateral cramping, bloating and feels inflammation. Has increased urination, admits to excessive amounts of caffeine daily. Cycle history in November and December into January she had her normal cycle with additional prolonged spotting for well over a week. History of bilateral tubal ligation. UPT is negative today. [facility] Surgical History (Updated 12/21/23 @ 11:05 by Anitha Fenton CMA) History of bilateral tubal ligation History of section Family History Father Diabetes Hypertension Mother Hypertension Rheumatoid arthritis Paternal Grandfather Throat cancer Social History Household Members: Spouse and Children Housing: Apartment Are you a primary acute care nurse to a significant other at home: No Do you presently have visiting nurse or other home services: No Alcohol intake: never Patient Tobacco Use Status: Never used Tobacco e-Cigarette/Vaping Use: Never Used Second Hand Smoke Exposure: No service: No Current occupational status: unemployed Cognitive needs: No Hearing needs: No Vision needs: No Female Reproductive History Menstrual Age of Menarche: 11 Date of last menstrual period: 01/11/24 Review of Systems Const All systems reviewed & are unremarkable except as noted in HPI and below Physical Exam Const General: cooperative, healthy appearing and no acute distress Orientation/consciousness: patient oriented x3 GI Inspection: Yes normal to inspection Palpation (GI): Soft to palpation and Other GI palpation findings present (Nontender) Rectal Exam - Female: visual inspection normal General: Yes bladder normal to palpation External Female Exam: normal appearance of the urethra Speculum Exam - Vagina: normal appearance of the vagina, normal palpation and other (Extremely dry with absence of discharge) Speculum Exam - Cervix: normal appearance of the cervix and normal palpation Bimanual exam- vagina & uterus: normal bimanual exam, normal palpation, uterine size normal, bladder normal to palpation, normal palpation, uterine shape normal and non-tender Bimanual Exam- Adnexa, other: normal adnexae Neuro General: patient oriented x3 Results AMB Urinalysis, Automated UA Leukoctes 0 [place]/uL Last Edit by MANDO Linder on 02/06/24 08:40 UA Nitrite Negative Last Edit by MANDO Linder on 02/06/24 08:40 UA Urobilinogen 0 mg/dL Last Edit by MANDO Linder on 02/06/24 08:40 UA Protein 0 mg/dL Last Edit by MANDO Linder on 02/06/24 08:40 UA pH 6.0 Last Edit by MANDO Linder on 02/06/24 08:40 UA Blood 0 [place]/uL Last Edit by MANDO Linder on 02/06/24 08:40 UA Specific [place] 1.015 Last Edit by MANDO Linder on 02/06/24 08:40 UA Ketone Negative Last Edit by MANDO Linder on 02/06/24 08:40 UA Bilirubin 0 mg/dL Last Edit by MANDO Linder on 02/06/24 08:40 UA Glucose 0 mg/dL Last Edit by MANDO Linder on 02/06/24 08:40 Results Reviewed Results Reviewed: Laboratory Last Values Urine pH (Auto) 6.0 02/06/24 08:37 Specific [place] (Auto) 1.015 02/06/24 08:37 Urine Protein (Auto) 0 mg/dL 02/06/24 08:37 Glucose (UA)(Auto) 0 mg/dL 02/06/24 08:37 Urine Ketones (Auto) Negative 02/06/24 08:37 Urine Blood (Auto) 0 [place]ibal/uL 02/06/24 08:37 Urine Nitrite (Auto) Negative 02/06/24 08:37 Urine Bilirubin (Auto) 0 mg/dL 02/06/24 08:37 Urine Urobilinogen (Auto) 0 mg/dL 02/06/24 08:37 Leukocyte Esterase (Auto) 0 [place]/uL 02/06/24 08:37 [place] [id number] Ultrasound Report Signed Patient: Afshan Avitia MR#: [id number] : 1980 Acct:[id number] Age/Sex: 43 / F ADM Date: 01/29/24 Loc: HO.US Attending Dr: Carolin Bearden CNM Ordering Physician: Carolin Bearden CNM Date of Service: 01/29/24 Procedure(s): US pelvic and transvaginal Accession Number(s): [id number] cc: Carolin Bearden CNM; Barb Catherine MD~ EXAMINATION: US PELVIS CLINICAL INFORMATION: Abnormal uterine and vaginal bleeding. LMP approximately 01/11/2024. COMPARISON: None available. TECHNIQUE: Ultrasound of the pelvis is performed using both transabdominal and transvaginal transducers along with Doppler. Transvaginal imaging is performed due to inadequate visualization transabdominally. FINDINGS: Anteverted uterus with normal morphology measuring 10.2 x 4 x 5.2 cm. Subjective heterogeneity of the myometrium. A 0.5 cm intramural upper uterine observation this suggestive of a fibroid. Homogeneous endometrium measuring 0.8 cm in thickness. Ovaries demonstrate preserved flow on color Doppler at the moment of this examination. The right ovary measures 1.5 x 1.8 x 1.8 cm, 2.5 mL and the left ovary measures 3.2 x 2.3 x 1.9 cm, 7.3 mL. There is a 0.9 x 1 x 0.9 cm cystic observation in the right ovary with heterogeneous avascular debris and a 2. 2 x 2 by 1.7 cm cystic observation in the left ovary with some thin peripheral septations as well as peripheral tumefactive avascular debris. No extraovarian adnexal mass. No free fluid. US/US pelvic and transvaginal IMPRESSION: 1. Subjective heterogeneity of the uterine myometrium that could indicate adenomyosis in the appropriate clinical context. 2. Small 0.5 cm upper intramural uterine lesion most suggestive of a fibroid. 3. Complicated cysts in both ovaries, possibly hemorrhagic cysts. Recommend follow-up with pelvic ultrasound in 6-8 weeks. Electronically signed by: Zabrina Clancy MD 01/29/2024 03:30 PM EDT Dictated By: Zabrina Clancy Signed By: <Electronically signed by Zabrina Clancy in OV> 01/29/24 1530 DD/ 1145 TD/TT: 01/29/24 1202 Regulatory Agency Director: Assessment & Plan Assessment & Plan (1) Complex cyst of both ovaries: Code(s): N83.291 - Other ovarian cyst, right side; N83.292 - Other ovarian cyst, left side Category: Medical (2) Abnormal uterine bleeding (AUB): Code(s): N93.9 - Abnormal uterine and vaginal bleeding, unspecified Category: Medical (3) Frequency of urination: Code(s): R35.0 - Frequency of micturition (4) Pelvic cramping: Code(s): R10.2 - Pelvic and perineal pain (5) Encounter to discuss test results: Code(s): Z71.2 - Person consulting for explanation of examination or test findings Plan Discussed: Ultrasound findings including small fibroid, and bilateral complex ovarian cyst. Counseled re: Leiomyoma: common pelvic neoplasm. Differential diagnosis-may include but not limited to- leiomyosarcoma which is a rare uterine sarcoma 3-7/100,000, difficult to distinguish from fibroids on ultrasound from uterine sarcoma's. Unlikely any single test will have a highly positive predictive value. Hysterectomy is not recommended for sole purpose of excluding malignant neoplasm. Consult for surgical exploration, medical treatment, other treatments, verses expectant management, pros and cons, risks and benefits. Expectant management. Referral to MD if indicated for level of care if indicated. Counseled regarding findings of: Complex ovarian cyst, which is often benign, and most resolve on their own overtime. Some develop into premalignant or malignant tumors. Limitations of testing for diagnostic purposes. Further monitoring and evaluation is recommended with US, possible CT, or MRI study. If persists, or is indicated (Ca-125, Carbohydrate Antigen 19-9, & Carcinoembryonic Antigen) labs will be ordered and referral to [facility] or general gynecology for MD care if indicated for possible surgical consult. Repeat ultrasound in 8 weeks-patient will be in [place] 1-2 weeks prior to this is unavailable. Follow up in person for test results. Pap smear obtained, repeat BV culture, urine dip negative. Advised against finger cleaning due to the vaginal daniel ecosystem, consider use of a women's probiotic. Healthy diet-eliminate sugar and processed food. Begin to reduce caffeine intake slowly ideally no more than 1-2 regular cups sizes a day, consume mostly water for hydration, avoid carbonated beverages artificial sweeteners and sugary drinks. If pain increases in the pelvic area to call the office for a sooner follow up. All of her questions and concerns were addressed to the best of my ability and shared decision making. She is agreeable to the plan of care. This note is constructed using voice recognition software. While every effort has been made to ensure accuracy, community development director errors may have been included. Orders: Orders Bacterial Vaginosis Panel Today R10.2 - Pelvic and perineal pain AMB Urinalysis Automated Today R35.0 - Frequency of micturition US pelvic and transvaginal 03/24/24 N83.291 - Other ovarian cyst, right side, N83.292 - Other ovarian cyst, left side PAP + HPV E6/E7 rfx 18/45 Today N93.9 - Abnormal uterine and vaginal bleeding, unspecified Coding Level of Care Code Est Pt Level 4 (25920) Diagnoses Complex cyst of both ovaries N83.291; N83.292 Abnormal uterine bleeding (AUB) N93.9 Frequency of urination R35.0 Pelvic cramping R10.2 Encounter to discuss test results Z71.2
== END 2024-02-06 09:05 | disposition home or self-care (01) ==
PROVIDERS: PCP Internal Medicine; Visit Provider Advanced Practice Midwife
DX: N83.291 Other ovarian cyst, right side (principal); N83.292 Other ovarian cyst, left side; N93.9 Abnormal uterine and vaginal bleeding, unspecified; R35.0 Frequency of micturition; R10.2 Pelvic and perineal pain; Z71.2 Person consulting for explanation of examination or test findings
CPT/HCPCS: 99214

== ENCOUNTER 2024-04-02 13:20 | Outpatient (REF) | payer OTHER, SELFPAY | END 2024-04-02 13:21 | disposition home or self-care (01) | LOC: HO.US 13:20 | PROVIDERS: PCP Internal Medicine; Visit Provider Advanced Practice Midwife | DX: N83.291 Other ovarian cyst, right side (principal); N83.292 Other ovarian cyst, left side | CPT/HCPCS: 76830; 76856 ==

== ENCOUNTER 2024-04-09 15:49 | Outpatient (AMB) | payer OTHER, SELFPAY ==
--- NOTE | 2024-04-09 15:57 | MHC.PC.OV ---
Vital Signs 04/09/24 15:58 Height 5 ft 7 in Weight 191 lb BMI 29.9 BP 118/80 Blood Pressure Location Lt brachial Position Sitting Intake Visit Reasons: ANNUAL Intake Note: Patient here for an Annual Physical Exam Him Director Required: No Accompanied by: Self / Same As Patient Allergies aspirin [ASPIRIN] Allergy (Intermediate, Verified 04/09/24 16:09) SWELLING penicillin V Allergy (Unknown, Verified 04/09/24 16:09) lip swelling amitriptyline Adverse Reaction (Unknown, Verified 04/09/24 16:09) Unknown Medication List - Last Reconciled 04/09/24 by Barb Kinney MD ferrous sulfate 324 mg PO DAILY Tobacco use date assessed: 04/09/24 Dental Screening Dental Screen Date: 04/09/24 Did you have a dental visit in the last 12 months?: Yes Did you have a dental problem in the last 6 months where you did not have access to dental care?: No Was dental information given to patient?: Patient has dentist HPI HPI Comments History of Present Illness Details The patient is a 43-year-old female presenting for her physical exam. Mammogram and Pap smear done 2023. She has no acute complaints. The patient is a 43-year-old female presenting for her physical exam. The patient was previously evaluated with a pelvic ultrasound, the results of which are still pending. She has a history of past ultrasounds evaluating persistent symptoms associated with endometriosis. She noted that there were additional Pap smears conducted as part of gynae assessments. The patient experiences allergies to aspirin, penicillin, and amitriptyline, resulting in swelling of the lips and other symptoms upon exposure. [facility] Surgical History History of bilateral tubal ligation History of section Family History Father Diabetes Hypertension Mother Hypertension Rheumatoid arthritis Paternal Grandfather Throat cancer Social History Household Members: Spouse and Children Housing: Apartment Are you a primary career law clerk to a significant other at home: No Do you presently have visiting nurse or other home services: No Alcohol intake: never Patient Tobacco Use Status: Never used Tobacco e-Cigarette/Vaping Use: Never Used Second Hand Smoke Exposure: No service: No Current occupational status: unemployed Cognitive needs: No Hearing needs: No Vision needs: No Female Reproductive History Menstrual Age of Menarche: 11 Questionnaire PHQ-9 Over the last 2 weeks, how often have you been bothered by any of the following problems? 1. Little interest or pleasure in doing things: not at all 2. Feeling down, depressed, or hopeless: not at all 3. Trouble falling or staying asleep, or sleeping too much: not at all 4. Feeling tired or having little energy: several days 5. Poor appetite or overeating: not at all 6. Feeling bad about yourself - or that you are a failure or have let yourself or your family down: not at all 7. Trouble concentrating on things, such as reading the newspaper or watching television: not at all 8. Moving or speaking so slowly that other people could have noticed. Or the opposite - being so fidgety or restless that you have been moving around a lot more than usual: not at all 9. Thoughts that you would be better off or of hurting yourself in some way: not at all Total score: 1 Depression Screening Interpretation: Negative Depression Screening Done: Yes 07706 - PHQ-9 Billing: Yes Source: Developed by Drs. Zachary Dowling, Chela Souza, Louie Naranjo and colleagues, with an educational obi from [employer]. Thrive Questionnaire Date Thrive assessed: 04/03/24 I am a: Patient What is your living situation today?: I have a steady place to live Within the past 12 months, did the food you bought not last and you didn't have the money to get more?: Never true Within the past 12 months, did you worry whether your food would run out before you got money to buy more?: Never true Do you have trouble paying for medicines?: No Do you have trouble getting transportation to medical appointments?: No Do you have trouble paying your heating and electricity bill?: No Do you have trouble taking care of your child, family member or friend?: No Do you have trouble with day-to-day activities such as bathing, preparing meals, shopping, managing finances, etc.?: No Are you currently unemployed and looking for a job?: No Are you interested in more education?: No Please select the resources that you would like help with: None Currently or been in a relationship where the following occur: No concerns reported THRIVE Score: 0 AUDIT C Alcohol Use Questionnaire (AUDIT-C) 1. How often do you have a drink containing alcohol?: Never Total Score: 0 Score Reviewed/Action Taken: No QUENTIN-7 AMB Questionnaire QUENTIN-7 Date QUENTIN - 7 assessed: 04/09/24 Feeling nervous, anxious, or on edge: 1 = Several days Not being able to stop or control worryin = Several days Worrying too much about different things: 1 = Several days Trouble relaxin = Not at all Being so restless that it is hard to sit still: 0 = Not at all Becoming easily annoyed or irritable: 0 = Not at all Feeling afraid as if something awful might happen: 0 = Not at all Total QUENTIN-7 score (0-4 normal; 5-9 mild; 10-14 moderate; 15-21 severe): 3 Source: Developed by Drs. Zachary Dowling, Chela Souza, Louie Naranjo and colleagues, with an educational obi from [employer]. QUENTIN-7 Assessment Billing QUENTIN-7 Assessment Tool: QUENTIN-7 Assessment 23600 Review of Systems Const All systems reviewed & are unremarkable except as noted in HPI and below Card Denies chest pain at rest, Denies chest pain with activity, Denies edema, Denies irregular heart rhythm, Denies claudication, Denies dyspnea, Denies dyspnea on exertion, Denies orthopnea, Denies paroxysmal nocturnal dyspnea and Denies slow heart rate Resp Denies cough, Denies dyspnea and Denies dyspnea on exertion GI Denies abdominal pain, Denies change in bowel habits, Denies excessive flatus, Denies nausea and Denies vomiting Denies urinary incontinence, Denies urinary hesitancy and Denies urinary urgency Musc Denies abnormal gait, Denies atrophy, Denies deformity and Denies limited range of motion Skin/Breast Denies bleeding lesions, Denies changing lesions and Denies rash Neuro Denies abnormal gait, Denies behavioral changes and Denies lack of coordination Psych Denies behavioral changes Physical exam (Primary Care) Vital Signs: Last Vital Signs BP 118/80 04/09/24 15:58 BMI result Body Mass Index 29.9 BMI Assessment/Plan discussion: High BMI High, discussed plan: lifestyle, weight reduction, dietary and physical activity Tobacco/Smoking Status: Tobacco use Status Tobacco use date assessed 04/09/24 04/09/24 16:02 Patient Tobacco Use Status Never used Tobacco 04/09/24 16:02 e-Cigarette/Vaping Use Never Used 04/09/24 16:02 PHQ-9: PHQ-9 Score PHQ-9: Total score 1 04/09/24 16:02 Depression Screening Interpretation: Negative Thrive Assessment: Date of Thrive Assessment Date Thrive assessed 04/03/24 04/09/24 16:02 Currently or been in a relationship where the following occur: No concerns reported HENMT Head: Yes normal to inspection, Yes normocephalic and Yes atraumatic Ears: external ears normal Eyes General: appearance normal, both eyes and all related structures Eyelids: Yes eyelids normal Conjunctivae: conjunctivae normal Neck Neck: Yes normal visual inspection and Yes supple Resp Effort & Inspection: normal respiratory effort Auscultation: clear to auscultation bilaterally Cardio Jugular venous distension: no JVD Rate: regular rate Rhythm: regular rhythm Heart sounds: S1 normal heart sound present and S2 normal heart sound present GI Inspection: Yes normal to inspection Palpation (GI): Soft to palpation and nontender Auscultation: normal bowel sounds Skin General skin exam: no rashes or lesions noted Neuro General: no focal motor deficits Extrem General: Yes full ROM Psych Appearance: grossly normal Office Procedures Flu Questionnaire Does the patient have a severe egg allergy?: No Immunizations Fluarix Triv [id number] (PF) 45 mcg (15 mcg x 3)/0.5 mL IM syringe Performing Provider: Barb Kinney MD [facility] Documented (not given) by: MANDO Lazo on 04/09/24 16:02 Reason Not Given: Patient Refused Coding Level of Care Code Est Pt Prev Care 40-64y(38879) Diagnoses Physical exam Z00.00 Additional Codes PHQ-9 - 09102 - PHQ-9 Billing: Yes ([id number]) QUENTIN-7 Assessment Billing - QUENTIN-7 Assessment Tool: QUENTIN-7 Assessment 26816 ([id number]) Time Spent (min) 30 Assessment & Plan Assessment & Plan (1) Physical exam: Code(s): Z00.00 - Encounter for general adult medical examination without abnormal findings Category: Medical Plan: Repeat in a year. Orders: Orders Lipid Panel Today E78.5 - Hyperlipidemia, unspecified, Z00.00 - Encounter for general adult medical examination without abnormal findings Influenza [id number] Immunization Today Z23 - Encounter for immunization Comprehensive [place]. Panel Fast Today Z00.00 - Encounter for general adult medical examination without abnormal findings Patient Instructions: - Await contact regarding the scheduling of a tetanus booster. - Schedule a follow-up for a cholesterol test and possibly a fasting glucose test. - Continue avoiding aspirin, penicillin, and amitriptyline due to known allergies. - Maintain current lifestyle practices and dietary habits.
[2024-04-09 15:58] VITALS: BP 118/80; BMI 29.9
== END 2024-04-09 16:23 | disposition home or self-care (01) ==
PROVIDERS: PCP Internal Medicine; Visit Provider Internal Medicine
DX: Z23 Encounter for immunization (principal); Z00.00 Encounter for general adult medical examination without abnormal findings

== ENCOUNTER → 2024-04-09 15:49 | Outpatient (BNVA) | payer OTHER, SELFPAY | PROVIDERS: PCP Internal Medicine; Visit Provider Internal Medicine | DX: Z00.00 Encounter for general adult medical examination without abnormal findings (principal); E78.5 Hyperlipidemia, unspecified; Z28.21 Immunization not carried out because of patient refusal | CPT/HCPCS: 90471; 96127; 99396 ==

== ENCOUNTER 2024-05-20 12:46 | Outpatient (AMB) | payer OTHER, SELFPAY ==
--- NOTE | 2024-05-20 12:53 | MHC.OFFVIS ---
Vital Signs 05/20/24 12:59 Height 5 ft 7 in Weight 185 lb BMI 29.0 Intake Visit Reasons: ultra sound follow up Cnc Service Technician Required: Yes Cnc Service Technician Language: Forming Machine Upkeep Mechanic Helper Name: Thierno spouse Core Layer Machine Operator: Core Layer Machine Operator Present Accompanied by: Spouse Allergies aspirin [ASPIRIN] Allergy (Intermediate, Verified 05/20/24 12:56) SWELLING penicillin V Allergy (Unknown, Verified 05/20/24 12:56) lip swelling amitriptyline Adverse Reaction (Unknown, Verified 05/20/24 12:56) Unknown Is last menstrual period known: Yes Last menstrual period: 05/02/24 HPI Comments Details: Patient is here today for a follow up test results pelvic ultrasound accompanied by her who was on her behalf her seismic interpreter. She denies any pelvic pain. [facility] Medical History (Updated 05/20/24 @ 13:11 by Carolin Bearden CNM) Complex ovarian cyst Surgical History History of bilateral tubal ligation History of section Family History Father Diabetes Hypertension Mother Hypertension Rheumatoid arthritis Paternal Grandfather Throat cancer Social History Household Members: Spouse and Children Housing: Apartment Are you a primary hearing care professional to a significant other at home: No Do you presently have visiting nurse or other home services: No Alcohol intake: never Patient Tobacco Use Status: Never used Tobacco e-Cigarette/Vaping Use: Never Used Second Hand Smoke Exposure: No service: No Current occupational status: unemployed Cognitive needs: No Hearing needs: No Vision needs: No Female Reproductive History Menstrual Age of Menarche: 11 Date of last menstrual period: 05/02/24 Review of Systems Const All systems reviewed & are unremarkable except as noted in HPI and below Endo Reports no additional complaints Physical Exam Vital Signs: BMI result Body Mass Index 29.0 Const General: cooperative, healthy appearing and no acute distress Psych Appearance: well kempt Attitude: cooperative Thought process: Normal thought process present Results Reviewed Results Reviewed: [address] [address] Ultrasound Report Signed Patient: Carlyle ArriazaAfshan MR#: [id number] : 1980 Acct:[id number] Age/Sex: 43 / F ADM Date: 04/02/24 Loc: HO.US Attending Dr: Carolin Bearden CNM Ordering Physician: Carolin Bearden CNM Date of Service: 04/02/24 Procedure(s): US pelvic and transvaginal Accession Number(s): [id number] cc: Carolin Bearden CNM; Barb Catherine MD~ EXAMINATION: US PELVIS CLINICAL INFORMATION: Follow up ovarian cyst, last menstrual period 03/12. COMPARISON: 01/29/2024. TECHNIQUE: Ultrasound of the pelvis is performed using both transabdominal and transvaginal transducers along with Doppler. Transvaginal imaging is performed due to inadequate visualization transabdominally. FINDINGS: The anteverted uterus measures 9.7 x 4.6 x 5.1 cm. A 0.5 x 0.4 x 0.7 cm uterine mass previously measured 0.5 x 0.5 x 0.5 cm again is suggestive of a fibroid. Endometrial thickness is 11 mm. Endometrium appears heterogeneous. Right ovary measures 2.7 x 1.5 x 1.3 cm, volume 2.7 mL. Left ovary measures 2.1 x 2.4 x 2.3 cm, volume 6.1 mL. 1.3 x 1.5 x 1.7 cm complex, thick-walled left ovarian cyst with diffuse internal echoes and septations, possibly a corpus luteum. Previous exam demonstrated a 2 x 2 x 1.7 cm mildly complex left ovarian cyst. US/US pelvic and transvaginal IMPRESSION: 1. Small 0.7 cm upper intramural uterine mass redemonstrated, most likely a fibroid. 2. Endometrium is heterogeneously echogenic with thickness of 11 mm. 3. Redemonstration of previously mentioned heterogeneity of the uterine myometrium which could indicate adenomyosis in the appropriate clinical context. 4. Interval resolution of previously seen right ovarian cyst. 5. Left ovarian 1.7 cm complex cyst, previous exam demonstrated a 2 cm mildly complex cyst. Electronically signed by: Jennifer Shahid MD 05/11/2024 12:00 PM [facility] Dictated By: Jennifer Shahid MD Signed By: <Electronically signed by Jennifer Shahid MD in OV> 05/11/24 1200 DD/ 1339 TD/TT: 04/02/24 1655 Senior Medical Writer: Assessment & Plan Assessment & Plan (1) Complex ovarian cyst: Code(s): N83.299 - Other ovarian cyst, unspecified side Category: Medical Plan Discussed: Ultrasound findings complex ovarian cyst, fibroids. Counseled regarding findings of: Complex ovarian cyst, which is often benign, and most resolve on their own overtime. Some develop into premalignant or malignant tumors. Limitations of testing for diagnostic purposes. Further monitoring and evaluation is recommended with US, possible CT, or MRI study. If persists, or is indicated (Ca-125, Carbohydrate Antigen 19-9, & Carcinoembryonic Antigen) labs will be ordered and referral to [facility] or general gynecology for MD care if indicated for possible surgical consult. Follow up in person for test results. All of her questions and concerns were addressed to the best of my ability and shared decision making. She is agreeable to the plan of care. This note is constructed using voice recognition software. While every effort has been made to ensure accuracy, telecommunication operator errors may have been included. Orders: Orders US pelvic and transvaginal 06/09/24 N83.299 - Other ovarian cyst, unspecified side Coding Level of Care Code Est Pt Level 3 (90150) Diagnoses Complex ovarian cyst N83.299
[2024-05-20 12:59] VITALS: BMI 29.0
--- OUTSIDE RECORDS SUMMARY | 2024-05-20 13:37 | XMS_ITS | Encounter Summary ---
Author Organization [employer] [facility] Address [address] [place] [address] Care Team Providers Care Distributor Sales Consultant Name Role Phone Unavailable Primary Care Provider Unavailabl e Reason for Visit * Reason Comments Dental Exam Encounter Details Date Type Department Care Team (Late st Contact Info) Description 01/17/2024 10:30 AM EDT Office Visit [facility] ADULT DENTAL [address] [place] [address] Soo Lux DDS [address] [place] [address] Encounter for dental examination (Primary Dx); Dental caries; Dental abscess; Closed fracture of tooth, initial encounter Social History Tobacco Use Types Packs/Day Years Used Date Smoking Tobacco: Never Smokeless Tobacco: Never Tobacco Cessation:Counseling Given: Not Answered Comments Unknown Sex and Gender Information Value Date Recorded Sex Assigned at Female 02/20/2022 10:26 AM EDT Legal Sex Female 10:26 AM EDT Gender Identity Female 12/25/2023 9:49 AM EDT Sexual Orientation Straight 12/25/2023 9: 49 AM EDT documented as of this encounter Progress Notes * Soo Lux DDS - 01/17/2024 10:30 AM EDT Dental procedures in this visit D0150 - COMPREHENSIVE ORAL EVALUATION - NEW OR ESTABLISHED PATIENT (Completed) Service provider: Soo Lux DDS Billing provider: Soo Lux DDS D0210 - INTRAORAL - COMPLETE SERIES OF RADIOGRAPHIC IMAGES (Completed) Service provider: Soo Lux DDS Billing provider: Soo Lux DDS D9450 - CASE PRESENTATION, DETAILED AND EXTENSIVE TREATMENT PLANNING (Completed) Service provider: Soo Lux DDS Billing provider: Soo Lux DDS Patient ID: Afshan Tadeo is a 43 y.o. female. Time Out: Timeout Date: 01/17/24, Timeout Time: 1034 (Time out for comp exam) Location: [facility] Tooth: Maxilla and Mandible Procedure: Exam and X-rays Verified the above with patient, assistant professor of geography, and provider. Confirmed via patient's chart, intraorally and by radiographs. Betting Agency Manager: not applicable Chief Complaint Patient presents with Dental Exam Medical Hx: Vitals: There were no vitals taken for this visit. History reviewed. No pertinent past medical history. Medications: Outpatient Encounter Medications as of 01/17/2024 Medication Sig Dispense Refill [] amoxicillin (Amoxil) 500 MG capsule Take 1 capsule (500 mg) by mouth every 8 (eight) hours for 7 days. 21 capsule 0 amoxicillin (Amoxil) 500 MG capsule Take 1 capsule (500 mg) by mouth every 8 (eight) hours for 7 days. 21 capsule 0 ferrous sulfate 324 (65 Fe) MG EC tablet Take 324 mg by mouth Once per day. No facility-administered encounter medications on file as of 01/17/2024. Objective HPI Soft Tissue Exam No findings documented this visit Head and Neck Exam: Lymph Nodes, Lips, Palate, Buccal Mucosa, Floor of Mouth, Tongue, Tonsils, Alveolar Ridges, Oropharynx, Salivary Ducts, and Vestibules - no significant findings osberved OCS: negative Dental Exam Radiographic Interpretation: Associated radiographs for today's visit were reviewed and finding(s) were discussed with the patient. Findings include: fractured teeth #14 and #19; recurrent caries; PARL #3; plaque; calculus Hard Tissue Exam: Decay noted - see charting and treatment plan and Fractured restorations/teeth Reference tooth chart for additional findings. Oral Cancer Risk: Low Risk Oral Hygiene Instructions: [place] two times daily, modified bolanos technique, Floss daily, Soft bristle toothbrush, [place] Tongue Caries Risk Assessment: High- two or more risk factors Assessment/Plan PAD and perio eval Eduarda navarrete Patient tolerated procedure well, all questions answered and expressed understanding. Dismissed in good condition. NV: Eduarda Beauty Sales Consultant: Marbella Hunt Dentist: Soo Lux DDS documented in this encounter Plan of Treatment Upcoming Encounters Date Type Department Care Team (Late st Contact Info) Description 06/11/2024 10:00 AM EST Office Visit [facility] [address] [place] [address] Soo Lux DDS [address] [place] [address] Scheduled Orders Name Type Priority Associated Diagnoses Orde r Schedule CROWN PREP Dental Routine 1 Occurrences starting 01/17/2024 PROPHYLAXIS - ADULT Dental Routine 1 Occ urrences starting 01/17/2024 14 14 ENDODONTIC THERAPY, MOLAR TOOTH (EXCLUDING FINAL PROTESTANT) Dental Routine 1 Occurrences starting 01/17/2024 14 14 PREFABRICATED POST AND CORE IN ADDITION TO CROWN Dental Routine [address] arting 01/17/2024 documented as of this encounter Procedures Procedure Name Priority Date/Time Associated Diagnosis Comments PERIODIC ORAL EVALUATION - ESTABLISHED PATIENT Routine 01/17/2024 10:30 AM EDT Encounter for dental examination Dental caries Dental abscess Closed fracture of tooth, initial encounter DIAGNOSTIC - DIAGNOSTIC IMAGING - INTRAORAL - COMPREHENSIVE SERIES OF RADIOGRAPHIC IMAGES Routine 01/17/2024 10:30 AM EDT Encounter for dental examination Dental caries Dental abscess Closed fracture of tooth, initial encounter ADJUNCTIVE GENERAL SERVICES - PROFESSIONAL VISITS - CASE PRESENTATION, SUBSEQUENT TO DETAILED AND EXTENSIVE TREATMENT PLANNING Routine 01/17/2024 10:30 AM EDT Encounter for dental examination Dental caries Dental abscess Closed fracture of tooth, initial encounter documented in this encounter Visit Diagnoses Diagnosis Encounter for dental examination- Primary Dental caries Unspecified dental caries Dental abscess Periapical abscess without sinus Closed fracture of tooth, initial encounter documented in this encounter
--- OUTSIDE RECORDS SUMMARY | 2024-05-20 13:37 | XMS_ITS | Encounter Summary ---
Author Organization [employer] [facility] Address [address] [place] [address] Care Team Providers Care Cigar Packing Examiner Name Role Phone Unavailable Primary Care Provider Unavailabl e Encounter Details Date Type Department Care Team (Late st Contact Info) Description 05/05/2024 11:00 AM EST Office Visit [facility] ADULT DENTAL [address] [place], [place] [id number] Karlo Harmon DMD [address] [place] [address] Dental abscess (Primary Dx) Social History Tobacco Use Types Packs/Day Years Used Date Smoking Tobacco: Never Smokeless Tobacco: Never Alcohol Use Standard Drinks/Week Comments Never 0 (1 standard drink = 0.6 oz pur e alcohol) Comments Unknown Sex and Gender Information Value Date Recorded Sex Assigned at Female 02/20/2022 10:26 AM EDT Legal Sex Female 10:26 AM EDT Gender Identity Female 12/25/2023 9:49 AM EDT Sexual Orientation Straight 12/25/2023 9: 49 AM EDT documented as of this encounter Last Filed Vital Signs Vital Sign Reading Time Taken Comments Blood Pressure 106/66 05/05/2024 11:05 AM EST Pulse - - Temperature - - Respiratory Rate - - Oxygen Saturation - - Inhaled Oxygen Concentration - - Weight - - Height - - Body Mass Index - - documented in this encounter Progress Notes * Karlo Harmon DMD - 05/05/2024 11:00 AM EST Patient is here for a rct #3 Rct procedure explained and consent taken for # 3. Confirmed profound anesthesia. Septocaine 1 carpule Infiltration given. Isolation: [place] Access made thru crown. Found 4 canals Canals located: 4 Pulpectomy done and access all 4 canals Wl: mb and db-18 mm mb-17.5 mm and p-19 mm Cleaning and shaping done only f2 Slight swelling Patient is aware that she needs surgical intervention after rct if the healing is not achieved. Cone fit x-rays taken Obturation done with bc sealer. Restorative Material: cotton pellet and ketac placed. Patient tolerated procedure well, no complications. Post op instructions given. . Advised core build up Prescribed amox. 500mg 1 po qid for 7 days Answered all the questions she have and gave poi thru david. NV: Permanent filling on # 3 documented in this encounter Plan of Treatment Upcoming Encounters Date Type Department Care Team (Late st Contact Info) Description 06/11/2024 10:00 AM EST Office Visit [facility] ADULT DENTAL [address] [place] [address] Soo Lux DDS [address] [place] [address] Scheduled Orders Name Type Priority Associated Diagnoses Orde r Schedule 3 O 3 O RESIN-BASED COMPOSITE - 1 SURFACE, POSTERIOR Dental Routine [address] arting 05/05/2024 documented as of this encounter Procedures Procedure Name Priority Date/Time Associated Diagnosis Comments 3 ENDODONTICS - ENDODONTIC THERAPY (INCLUDING TREATMENT PLAN, CLINICAL PROCEDURES AND FOLLOW-UP CARE) - ENDODONTIC THERAPY, MOLAR TOOTH (EXCLUDING FINAL CONGREGATION) Routine 05/05/2024 11:00 AM EST ADJUNCTIVE GENERAL SERVICES - PROFESSIONAL VISITS - CASE PRESENTATION, SUBSEQUENT TO DETAILED AND EXTENSIVE TREATMENT PLANNING Routine 05/05/2024 11:00 AM EST documented in this encounter Visit Diagnoses Diagnosis Dental abscess- Primary Periapical abscess without sinus documented in this encounter
--- OUTSIDE RECORDS SUMMARY | 2024-05-20 13:37 | XMS_ITS | Clinical Summary ---
Author Organization [employer] [facility] Address [address] [place] [address] [address] [place] [address] Care Team Providers Care Plant Anatomy Teacher Name Role Phone Unavailable Primary Care Provider Unavailabl e Allergies Active Allergy Reactions Criticality Noted Date Comments Aspirin Rash Low 01/04/2024 Medications ferrous sulfate 324 (65 Fe) MG EC tablet Take 324 mg by mouth Once per day. 09/26/2023 Active amoxicillin (Amoxil) 500 MG capsule Take 1 capsule (500 mg) by mouth every 6 (six) hours for 7 days. 28 capsule 05/05/2024 05/12/19 25 Active Problems Problem Noted Date Diagnosed Date Anemia 05/17/2022 Encounters Date Type Department Care Team Description 05/05/2024 11:00 AM EST Office Visit [facility] ADULT DENTAL [address] [place] [address] Karlo Harmon, NIRAV Dental abscess (Primary Dx) 04/30/2024 Telephone [facility]ULT [facility] [address] [place] [address] Karlo Harmon, NIRAV 04/30/2024 Telephone [facility]ULT [facility] [address] [place] [address] Karlo Harmon DMD 04/21/2024 10:30 AM EST Office Visit [facility] ADULT D[facility] [address] [place] [address] Karlo Harmon DMD Dental abscess (Primary Dx) 04/09/2024 Telephone [facility] ADULT D[facility] [address] [place] [address] Karlo Harmon DMD appt 04/01/2024 Telephone [facility]ULT [facility] [address] [place] [address] Karlo Harmon DMD 03/31/2024 10:00 AM EST Office Visit [facility] ADULT DENT[facility] [address] [place] [address] Karlo Harmon, DMD Dental abscess (Primary Dx) 03/26/2024 11:15 AM EST Office Visit [facility]ULT D[facility] [address] [place] [address] Eric Marybel, DDS 03/24/2024 11:15 AM EST Office Visit [facility] ADULT [facility] [address] [place] [address] Karlo Harmon, DMD Dental abscess (Primary Dx) 03/19/2024 1:00 PM EST Office Visit [facility] ADULT D[facility] [address] [place] [address] Soo Lux DDS Periapical abscess with sinus (Primary Dx); Necrosis of dental pulp from Last 3 Months Social History Tobacco Use Types Packs/Day Years Used Date Smoking Tobacco: Never Smokeless Tobacco: Never Tobacco Cessation:Counseling Given: Not Answered Alcohol Use Standard Drinks/Week Comments Never 0 (1 standard drink = 0.6 oz pur e alcohol) Comments Unknown Sex and Gender Information Value Date Recorded Sex Assigned at Female 02/20/2022 10:26 AM EDT Legal Sex Female 10:26 AM EDT Gender Identity Female 12/25/2023 9:49 AM EDT Sexual Orientation Straight 12/25/2023 9: 49 AM EDT Last Filed Vital Signs Vital Sign Reading Time Taken Comments Blood Pressure 106/66 05/05/2024 11:05 AM EST Pulse - - Temperature - - Respiratory Rate - - Oxygen Saturation - - Inhaled Oxygen Concentration - - Weight - - Height - - Body Mass Index - - Plan of Treatment Upcoming Encounters Date Type Department Care Team (Late st Contact Info) Description 06/11/2024 10:00 AM EST Office Visit [facility] ADULT DENTAL [address] [place] [address] Soo Lux DDS [address] [place] [address] Health Maintenance Due Date Last Done Comments Depression Screening 1979 HIV Screening 1979 SDOH Screening 1979 Alcohol/Substance Use Screening 1991 Family Planning (PISQ) 07/09/1994 Hepatitis C Screening 07/09/1997 DTaP/Tdap/Td Vaccines (1 - Tdap) 07/09/1998 Hepatitis B Vaccines (1 of 3 - 19+ 3-dose series) 07/09/1998 Pap Smear 07/09/2000 Cervical Cancer Screening 07/09/2009 HPV/Cotest 07/09/2009 Mammogram 2019 Dental Prophylaxis 09/12/2019 03/13/2019, 09/08/2013 COVID-19 Vaccine ( - 2023- season) 2023 Influenza Vaccine (#1) 2023 Dental Oral Exam 07/17/2024 01/17/2024, , 08/20/2013 Dental X-Ray: Bitewings 03/20/2025 03/19/20 24, 01/17/2024, 01/04/2024, Additional history exists Tobacco Screening 04/21/2025 04/21/2024 Dental X-Ray: Full Mouth 01/17/2027 01/17/2024, 07/24 Zoster Vaccines (1 of 2) 07/09/2029 RSV Patients and Patients Aged 60 years or older (1 - 1-dose 75+ series) 07/09/2054 HIB Vaccines Aged Out No longer eligi ble based on patient's age to complete this topic HPV Vaccines Aged Out No longer eligi ble based on patient's age to complete this topic Hepatitis A Vaccines Aged Out No long er eligible based on patient's age to complete this topic IPV Vaccines Aged Out No longer eligi ble based on patient's age to complete this topic Meningococcal Vaccine Aged Out No luis fernando sully eligible based on patient's age to complete this topic Pneumococcal Vaccine: Pediatrics (0 to 5 Years) and At-Risk Patients (6 to 64 Years) Aged Out No longer eligible based on patient's age to complete this topic RSV under 20 months Aged Out No longe r eligible based on patient's age to complete this topic Rotavirus Vaccines Aged Out No longer eligible based on patient's age to complete this topic Procedures Procedure Name Priority Date/Time Associated Diagnosis Comments ADJUNCTIVE GENERAL SERVICES - PROFESSIONAL VISITS - CASE PRESENTATION, SUBSEQUENT TO DETAILED AND EXTENSIVE TREATMENT PLANNING Routine 05/05/2024 11:00 AM EST 3 ENDODONTICS - ENDODONTIC THERAPY (INCLUDING TREATMENT PLAN, CLINICAL PROCEDURES AND FOLLOW-UP CARE) - ENDODONTIC THERAPY, MOLAR TOOTH (EXCLUDING FINAL SYNAGOGUE) Routine 05/05/2024 11:00 AM EST NO CHARGE VISIT Routine 04/21/2024 10:30 AM EST ADJUNCTIVE GENERAL SERVICES - PROFESSIONAL VISITS - CASE PRESENTATION, SUBSEQUENT TO DETAILED AND EXTENSIVE TREATMENT PLANNING Routine 03/31/2024 10:00 AM EST 3 INTRAORAL - PERIAPICAL FIRST RADIOGRAPHIC IMAGE Routine 03/31/2024 10:00 AM EST 3 LIMITED ORAL EVALUATION - PROBLEM FOCUSED Routine 03/31/2024 10:00 AM EST CONSULTATION - DIAGNOSTIC SERVICE PROVIDED BY DENTIST OR PHYSICIAN OTHER THAN REQUESTING DENTIST OR PHYSICIAN Routine 03/26/2024 11:15 AM EST CONSULTATION - DIAGNOSTIC SERVICE PROVIDED BY DENTIST OR PHYSICIAN OTHER THAN REQUESTING DENTIST OR PHYSICIAN Routine 03/24/2024 11:15 AM EST 3 LIMITED ORAL EVALUATION - PROBLEM FOCUSED Routine 03/24/2024 11:15 AM EST ADJUNCTIVE GENERAL SERVICES - PROFESSIONAL VISITS - CASE PRESENTATION, SUBSEQUENT TO DETAILED AND EXTENSIVE TREATMENT PLANNING Routine 03/19/2024 1:00 PM EST Periapical abscess with sinus Necrosis of dental pulp BITEWING - SINGLE RADIOGRAPHIC IMAGE Routine 03/19/2024 1:00 PM EST Periapical abscess with sinus Necrosis of dental pulp INTRAORAL - PERIAPICAL FIRST RADIOGRAPHIC IMAGE Routine 03/19/2024 1:00 PM EST Periapical abscess with sinus Necrosis of dental pulp LIMITED ORAL EVALUATION - PROBLEM FOCUSED Routine 03/19/2024 1:00 PM EST Periapical abscess with sinus Necrosis of dental pulp DIAGNOSTIC - DIAGNOSTIC IMAGING - INTRAORAL - COMPREHENSIVE SERIES OF RADIOGRAPHIC IMAGES Routine 01/17/2024 10:30 AM EDT Encounter for dental examination Dental caries Dental abscess Closed fracture of tooth, initial encounter PERIODIC ORAL EVALUATION - ESTABLISHED PATIENT Routine 01/17/2024 10:30 AM EDT Encounter for dental examination Dental caries Dental abscess Closed fracture of tooth, initial encounter PROPHYLAXIS - ADULT Routine 03/13/2019 1 2:00 AM EST from Last 3 Months or Most Recently Relevant to Health Maintenance Insurance DENTAL - HSN PARTIAL (MEDICAID)
--- OUTSIDE RECORDS SUMMARY | 2024-05-20 13:37 | XMS_ITS | Encounter Summary ---
Author Organization [employer] Address [address] [facility] [address] [place] [address] Care Team Providers Care Solderer Furnace Name Role Phone Unavailable Primary Care Provider Unavailabl e Encounter Details Date Type Department Care Team (Late st Contact Info) Description 04/30/2024 Telephone [facility] ADULT D[facility] [address] [place], [place] [phone] Karlo Harmon, NIRAV [address] [place], [place] [phone] Social History Tobacco Use Types Packs/Day Years [...] AM EDT documented as of this encounter Miscellaneous Notes * Telephone Encounter - Esther Montez - 04/30/2024 11:48 AM EST I spoke with the patient and explained the process of her case. I need to translate the informationas best of my knowledge that was provide by Dr. Faustino Harmon mentioned that the canals inside the tooth are still wet and draining due to the infection around the tooth within the bone underlying the gums. The tooth has already been cleaned thoroughly, and multiple courses of antibiotics have been given. However, at this point, antibiotics won't speed up the healing process. The gap between appointments is necessary to monitor the tooth and see when it's ready for the final stage. This maytake 2-3 weeks between visits. Additionally, the chart notes indicate that the patient may still need surgery after the root canal is completed to fully resolve the infection. In the meantime, warm saltwater rinses (3-4 times daily) can help with managing the symptoms. The patient understand that Dr. Harmon has a very busy schedule, but she still has questions that was not answer on her dental appointment. Patient has an appointment on 05/05/2024 and I inform her that I will be available if she still has any other concerns. documented in this encounter Plan of Treatment Upcoming Encounters Date Type Department Care Team (Late st Contact Info) Description 06/11/2024 10:00 AM EST Office Visit [facility] ADULT DENTAL [address] [place] [address] Soo Lux DDS [address] [place] [address] documented as of this encounter Visit Diagnoses Not on filedocumented in this encounter
--- OUTSIDE RECORDS SUMMARY | 2024-05-20 13:37 | XMS_ITS | Encounter Summary ---
Author Organization [facility] Address [address] [facility] [address] [place] [address] Care Team Providers Care Cutting And Printing Machine Operator Name Role Phone Unavailable Primary Care Provider Unavailabl e Encounter Details Date Type Department Care Team (Latest Contact Info) Description 03/13/2019 Abstract [facility] CONVERSIONS Dental, Provider, DDS Social History Tobacco Use Types Packs/Day Years Used Date Smoking Tobacco: Never Assessed Comments Unknown Sex and Gender Information Value Date Recorded Sex Assigned at Female 02/20/2022 10:26 AM EDT Legal Sex Female 10:26 AM EDT Gender Identity Female 12/25/2023 9:49 AM EDT Sexual Orientation Straight 12/25/2023 9: 49 AM EDT documented as of this encounter Plan of Treatment Upcoming Encounters Date Type Department Care Team (Late st Contact Info) Description 06/11/2024 10:00 AM EST Office Visit [facility] ADULT DENTAL [address] [place] [address] Soo Lux, DDS [address] [place] [address] documented as of this encounter Visit Diagnoses Not on filedocumented in this encounter
--- OUTSIDE RECORDS SUMMARY | 2024-05-20 13:37 | XMS_ITS | Encounter Summary ---
Author Organization [employer] [facility] Address [address] [facility] [address] [place] [address] Care Team Providers Care Automobile Leasing Supervisor Name Role Phone Unavailable Primary Care Provider Unavailabl e Encounter Details Date Type Department Care Team (Late st Contact Info) Description 04/21/2024 10:30 AM EST Office Visit [facility] ADULT DENTAL [address] [place], [place] [phone] Karlo Harmon DMD [address] [place] [address] Dental abscess (Primary Dx) Social History Tobacco [...] Sign Reading Time Taken Comments Blood Pressure 114/66 04/21/2024 10:52 AM EST Pulse - - Temperature - - Respiratory Rate - - Oxygen Saturation - - Inhaled Oxygen Concentration - - Weight - - Height - - Body Mass Index - - documented in this encounter Progress Notes * Karlo Harmon DMD - 04/21/2024 10:30 AM EST Patient is here for a rct #3 Rct procedure explained and consent taken for # 3. Confirmed profound anesthesia. Septocaine 1 carpule Infiltration given. Isolation: [place] Access refined. Found 3 canals Pus is draining from root canal space. Patency obtained in all 3 canals Cleaning and shaping done only s2 Ca(oh)2 placed. Restorative Material: cotton pellet and ketac placed. Patient tolerated procedure well, no complications. Post op instructions given. . [place] rct #3 in progress. Could not finish rct because canal is draining. Obturation will have flare up. [place]: finish rct # 3 documented in this encounter Plan of Treatment Upcoming Encounters Date Type Department Care Team (Late st Contact Info) Description 06/11/2024 10:00 AM EST Office Visit [facility] ADULT DENTAL [address] [place] [address] Soo Lux DDS [address] [place] [address] documented as of this encounter Procedures Procedure Name Priority Date/Time Associated Diagnosis Comments NO CHARGE VISIT Routine 04/21/2024 10:30 AM EST documented in this encounter Visit Diagnoses Diagnosis Dental abscess- Primary Periapical abscess without sinus documented in this encounter
--- OUTSIDE RECORDS SUMMARY | 2024-05-20 13:37 | XMS_ITS | Encounter Summary ---
Author Organization [employer] Address [address] [place] [address] [address] [place] [address] Care Team Providers Care Weatherization Specialist Name Role Phone Unavailable Primary Care Provider Unavailabl e Encounter Details Date Type Department Care Team (Late Contact Info) Description 04/30/2024 Telephone [facility] ADULT DENTAL [address] [place], [place] [phone] Karlo Harmon, DMD [address] [place], [place] [phone] Social History Tobacco Use Types Packs/Day Years [...] Miscellaneous Notes * Telephone Encounter - Esther Smallszarry - 04/30/2024 9:54 AM EST LVM for the patient to give me a call back in [facility] the survey response and her RCT. documented in this encounter Plan of Treatment Upcoming Encounters Date Type Department Care Team ([facility] Contact Info) Description 06/11/2024 10:00 AM EST Office Visit [facility] ADULT DENTAL [address] [place] [address] Soo Lux, DDS [address] [place], [place] [phone] documented as of this encounter Visit Diagnoses Not on filedocumented in this encounter
== END 2024-05-20 14:20 | disposition home or self-care (01) ==
PROVIDERS: PCP Internal Medicine; Visit Provider Advanced Practice Midwife
DX: N83.299 Other ovarian cyst, unspecified side (principal)
CPT/HCPCS: 99213

== ENCOUNTER → 2024-05-20 12:46 | Outpatient (BNVA) | payer OTHER, SELFPAY | PROVIDERS: PCP Internal Medicine; Visit Provider Advanced Practice Midwife | DX: N83.299 Other ovarian cyst, unspecified side (principal) | CPT/HCPCS: 99212 ==

== ENCOUNTER 2024-12-08 11:29 | Outpatient (REF) | payer OTHER, SELFPAY ==
[2024-12-08 11:39] LABS: MANUAL DIFF FLAG NO
[2024-12-08 11:47] LABS: Hematocrit 34.1 % (37.0-47.0); Hemoglobin 11.3 g/dl (12.0-16.0); Imm Gran Abs Auto 0.01 X10*3/uL (0.00-0.03); Imm Gran Pct Auto 0.2 % (0.0-0.4); Lymphocytes Absolute Auto 2.0 X10*3/uL (1.2-4.9); Mean Corpuscular HGB Conc 33.1 g/dl (31.0-35.0); Mean Corpuscular Hemoglobin 28.8 pg (27.0-33.0); Mean Corpuscular Volume 87.0 fL (80.0-98.0); NRBC Abs Auto 0.000 X10*3/uL (0.0-0.012); NRBC Pct Auto 0.0 /100WBC (0.0-0.2); Platelet Count 192 X10*3/uL (160-400); Red Blood Count 3.92 X10*6/uL (4.20-5.50); White Blood Count 5.0 X10*3/uL (4.8-10.8)
[2024-12-08 12:20] LABS: Iron 32 mcg/dL (30-160); Percent Iron Saturation 11 % (15-50); Total Iron Binding Capacity 300 mcg/dL (228-428); Unsaturated Iron Binding 268 ug/dL
--- OUTSIDE RECORDS SUMMARY | 2024-12-08 12:50 | XMS_ITS | Encounter Summary ---
Author Organization [employer] [facility] Address [address] [place] [address] Care Team Providers Care Wire Border Assembler Name Role Phone Unavailable Primary Care Provider Unavailabl e Encounter Details Date Type Department Care Team (Latest Contact Info) Description 03/13/2019 Abstract [facility] CONVERSIONS Dental, Provider, DDS Social History Tobacco Use Types Packs/Day Years Used Date Smoking Tobacco: Never Assessed Comments Unknown Sex and Gender Information Value Date Recorded Sex Assigned at Female 02/20/2022 10:26 AM EDT Legal Sex Female 10:26 AM EDT Gender Identity Female 12/25/2023 9:49 AM EDT Sexual Orientation Straight 12/25/2023 9: 49 AM EDT documented as of this encounter Plan of Treatment Not on file documented as of this encounter Visit Diagnoses Not on filedocumented in this encounter
== END 2024-12-08 11:30 | disposition home or self-care (01) ==
LOC: HO.LAB 11:29
PROVIDERS: PCP Internal Medicine; Visit Provider Internal Medicine
DX: D64.9 Anemia, unspecified (principal)
CPT/HCPCS: 36415; 83540; 85025

== ENCOUNTER 2025-03-03 15:14 | Outpatient (REF) | payer OTHER, SELFPAY ==
[2025-03-03 17:12] LABS: Hematocrit 36.7 % (37.0-47.0); Hemoglobin 12.0 g/dl (12.0-16.0); Mean Corpuscular HGB Conc 32.7 g/dl (31.0-35.0); Mean Corpuscular Hemoglobin 29.6 pg (27.0-33.0); Mean Corpuscular Volume 90.4 fL (80.0-98.0); NRBC Abs Auto 0.000 X10*3/uL (0.0-0.012); NRBC Pct Auto 0.0 /100WBC (0.0-0.2); Platelet Count 194 X10*3/uL (160-400); Red Blood Count 4.06 X10*6/uL (4.20-5.50); White Blood Count 7.1 X10*3/uL (4.8-10.8)
[2025-03-03 17:51] LABS: Thyroid Stimulating Hormone 0.79 uIU/mL (0.32-4.0)
== END 2025-03-03 15:15 | disposition home or self-care (01) ==
LOC: HO.LAB 15:14
PROVIDERS: PCP Internal Medicine; Visit Provider Advanced Practice Midwife
DX: Z01.419 Encounter for gynecological examination (general) (routine) without abnormal findings (principal); N92.1 Excessive and frequent menstruation with irregular cycle; N83.299 Other ovarian cyst, unspecified side; Z32.02 Encounter for pregnancy test, result negative; Z12.31 Encounter for screening mammogram for malignant neoplasm of breast; Z98.51 Tubal ligation status
CPT/HCPCS: 36415; 81002; 81025; 84443; 85027; 99212; 99396

== ENCOUNTER 2025-03-03 15:14 | Outpatient (AMB) | payer OTHER, SELFPAY ==
--- NOTE | 2025-03-03 15:28 | A.OFFVIS_ITS ---
Vital Signs 03/03/25 15:32 Height 5 ft 7 in BP 116/74 Blood Pressure Location Rt brachial Position Sitting Intake Visit Reasons: Amenorrhea and pelvic pain Intake Note: lmp 01/15/25 and left sided pain for 1 week Sales Operations Analyst Required: Yes Sales Operations Analyst Services: Sales Operations Analyst Present Sales Operations Analyst Name: clarence Information Interpreted: non-clinical & clinical Neck Band Setter: Neck Band Setter Present (clarence) Accompanied by: Self / Same As Patient Allergies aspirin (ASPIRIN) Allergy (Intermediate, Verified 03/03/25 15:31) SWELLING penicillin V Allergy (Unknown, Verified 03/03/25 15:31) lip swelling amitriptyline Adverse Reaction (Unknown, Verified 03/03/25 15:31) Unknown Medication List - Last Reconciled 03/03/25 by Gayle Gordillo LPN ferrous sulfate 325 mg PO DAILY 90 days Is last menstrual period known: Yes Last menstrual period: 01/15/25 Patient : No Do you need a note to return to daycare/school/sports/work: No HPI Comments Details: Patient is here today with concerns about one missed menses, LMP 01/15/2025. Menses are x5d, normal flow. She reports right-sided pelvic pain, bloating and pain to her back. History of complex ovarian cyst had not followed up with her pelvic ultrasound due to lack of insurance. TSH 01/24/2024 0.71. Currently on iron, H/H 11.3/34.1 12/08/2024. History of tubal ligation. Overdue for her annual: She tries to eat healthy and stays active with exercise. Denies family history of breast, ovarian or colon cancer. Last pap smear 2023, unsatisfactory. Mammogram: Not up-to-date. . [facility] Medical History Pelvic pain Irregular menses Complex ovarian cyst Surgical History History of bilateral tubal ligation History of section Family History Father Diabetes Hypertension Mother Hypertension Rheumatoid arthritis Paternal Grandfather Throat cancer Social History Household Members: Spouse and Children Housing: Apartment Are you a primary healthcare consultant to a significant other at home: No Do you presently have visiting nurse or other home services: No Alcohol intake: never Patient Tobacco Use Status: Never used Tobacco e-Cigarette/Vaping Use: Never Used Second Hand Smoke Exposure: No service: No Current occupational status: unemployed Cognitive needs: No Hearing needs: No Vision needs: No Female Reproductive History Menstrual Age of Menarche: 11 Date of last menstrual period: 01/15/25 control method: permanent sterilization Review of Systems Const All systems reviewed & are unremarkable except as noted in HPI and below Reports as per HPI Eyes Reports no additional complaints ENT Reports no additional complaints Card Reports no additional complaints Resp Reports no additional complaints GI Reports as per HPI and Reports no additional complaints Reports as per HPI Musc Reports no additional complaints Skin/Breast Reports as per HPI Neuro Reports no additional complaints Psych Reports no additional complaints Endo Reports no additional complaints Braeden/Lymph Reports no additional complaints Aller/Immun Reports no additional complaints Physical Exam Vital Signs: Last Vital Signs BP 116/74 03/03/25 15:32 Const General: cooperative, healthy appearing, no acute distress, well developed and alert Orientation/consciousness: patient oriented x3 HEENT Head: Yes normal to inspection Eyes General: appearance normal, both eyes and all related structures Neck Neck: Yes normal visual inspection Thyroid: Thyroid normal Chest Chest palpation & inspection: normal inspection of the chest and other (no puckering, dimpling, peau de orange, retraction, discharge, masses) Breast/axilla inspection: normal inspection of the breasts Breast/axilla palpation: normal palpation of the breasts Resp Effort & Inspection: normal respiratory effort GI Inspection: Yes normal to inspection and Yes scar Palpation (GI): Soft to palpation Rectal Exam - Female: deferred General: Yes bladder normal to palpation External Female Exam: normal external appearance and normal appearance of the urethra Speculum Exam - Vagina: normal appearance of the vagina, normal palpation and normal vaginal discharge Speculum Exam - Cervix: normal appearance of the cervix and normal palpation Bimanual exam- vagina & uterus: normal bimanual exam, normal palpation, uterine size normal, bladder normal to palpation, normal palpation and non-tender Bimanual Exam- Adnexa, other: Adnexal mass present on the right Skin General skin exam: no rashes or lesions noted Rashes: no rashes Neuro General: patient oriented x3 Cognition (Neuro): normal cognition Extrem General: Yes normal to inspection Psych Attitude: cooperative Thought process: Normal thought process present Results AMB Test Urine AMB Test Urine Negative Last Edit by Gayleed Gordillo, SOFTWARE SALES CONSULTANT on 15:36 AMB Urinalysis Dipstick UR Leukocytes Negative Last Edit by Gayle [place], SOFTWARE SALES CONSULTANT on 03/03/25 15:38 UR Nitrite Negative Last Edit by Gayle [place], SOFTWARE SALES CONSULTANT on 03/03/25 15:38 UR Urobilinogen 4 Last Edit by Gayle [place], SOFTWARE SALES CONSULTANT on 03/03/25 15:38 UR Protein Negative Last Edit by Gayle Rand, SOFTWARE SALES CONSULTANT on 03/03/25 15:38 UR Ph 5.5 Last Edit by Gayle [place], SOFTWARE SALES CONSULTANT on 03/03/25 15:38 UR Blood Negative Last Edit by Gayle [place], SOFTWARE SALES CONSULTANT on 03/03/25 15:38 UR Specific Onyx 1.030 Last Edit by Gayle [place], SOFTWARE SALES CONSULTANT on 03/03/25 15:38 UR Ketone Negative Last Edit by Gayle Rand, SOFTWARE SALES CONSULTANT on 03/03/25 15:38 UR Bilirubin Negative Last Edit by Gayle [place], SOFTWARE SALES CONSULTANT on 03/03/25 15:38 UR Glucose Negative Last Edit by Gayle [place], SOFTWARE SALES CONSULTANT on 03/03/25 15:38 Results Reviewed Results Reviewed: Laboratory Last Values Urine pH (Clinic) 5.5 03/03/25 15:35 Specific Onyx (Clinic) 1.030 03/03/25 15:35 Ur Protein (Clinic) Negative 03/03/25 15:35 Ur Ketones (Clinic) Negative 03/03/25 15:35 Urine Blood (Clinic) Negative 03/03/25 15:35 Urine Nitrite Negative 03/03/25 15:35 Urine Bilirubin (Clinic) Negative 03/03/25 15:35 Urobilinogen (Clinic) 4 03/03/25 15:35 Leukocyte Esterase (Clinic) Negative 03/03/25 15:35 Urine Glucose (Clinic) Negative 03/03/25 15:35 Tst Clinic Negative 03/03/25 15:[address] [address] Ultrasound Report Signed Patient: Afshan Avitia MR#: [id number] : 1980 Acct:[id number] Age/Sex: 43 / F ADM Date: 04/02/24 Loc: HO.US Attending Dr: Carolin Bearden CNM Ordering Physician: Carolin Bearden CNM Date of Service: 04/02/24 Procedure(s): US pelvic and transvaginal Accession Number(s): [id number] cc: Carolin Bearden CNM; Barb Catherine MD~ EXAMINATION: US PELVIS CLINICAL INFORMATION: Follow up ovarian cyst, last menstrual period 03/12. COMPARISON: 01/29/2024. TECHNIQUE: Ultrasound of the pelvis is performed using both transabdominal and transvaginal transducers along with Doppler. Transvaginal imaging is performed due to inadequate visualization transabdominally. FINDINGS: The anteverted uterus measures 9.7 x 4.6 x 5.1 cm. A 0.5 x 0.4 x 0.7 cm uterine mass previously measured 0.5 x 0.5 x 0.5 cm again is suggestive of a fibroid. Endometrial thickness is 11 mm. Endometrium appears heterogeneous. Right ovary measures 2.7 x 1.5 x 1.3 cm, volume 2.7 mL. Left ovary measures 2.1 x 2.4 x 2.3 cm, volume 6.1 mL. 1.3 x 1.5 x 1.7 cm complex, thick-walled left ovarian cyst with diffuse internal echoes and septations, possibly a corpus luteum. Previous exam demonstrated a 2 x 2 x 1.7 cm mildly complex left ovarian cyst. US/US pelvic and transvaginal IMPRESSION: 1. Small 0.7 cm upper intramural uterine mass redemonstrated, most likely a fibroid. 2. Endometrium is heterogeneously echogenic with thickness of 11 mm. 3. Redemonstration of previously mentioned heterogeneity of the uterine myometrium which could indicate adenomyosis in the appropriate clinical context. 4. Interval resolution of previously seen right ovarian cyst. 5. Left ovarian 1.7 cm complex cyst, previous exam demonstrated a 2 cm mildly complex cyst. Electronically signed by: Jennifer Shahid MD 05/11/2024 12:00 PM EST RP Dictated By: Jennifer Shahid MD Signed By: <Electronically signed by Jennifer Shahid MD in OV> 05/11/24 1200 DD/ 1339 TD/TT: 04/02/24 1355 Administration Manager: Assessment & Plan Assessment & Plan (1) Well woman exam with routine gynecological exam: Code(s): Z01.419 - Encounter for gynecological examination (general) (routine) without abnormal findings Category: Medical Plan: Discussed: Current recommendations for pap smears per ASCCP guidelines. Breast awareness and periodic breast exams. Mammogram yearly. Order placed. Maintain a healthy lifestyle including a well balanced diet and routine exercise. Patient verbalizes understanding and agrees to the plan of care. She was given opportunity to ask questions and all questions were answered to the best of my ability. RTO in one year for annual special agent examination. This note is constructed using voice recognition software. While every effort has been made to ensure accuracy, manager exchange errors may have been included. (2) Irregular menses: Code(s): N92.6 - Irregular menstruation, unspecified Category: Medical Plan: Reviewed perimenopausal changes in spacing of menses. Plan CBC and TSH. The patient expressed understanding and agreement with the plan of care. All of her questions and concerns were addressed to the best of my ability. (3) Pelvic pain: Code(s): R10.2 - Pelvic and perineal pain Category: Medical Plan: Urine dip negative, UPT is negative, GC chlamydia and BV panel obtained await results for final plan of care. Pelvic rest, [id number] comfort measures reviewed, pelvic warnings and when to seek medical care for immediate evaluation with increased pain. The patient expressed understanding and agreement with the plan of care. All of her questions and concerns were addressed to the best of my ability. (4) Complex ovarian cyst: Code(s): N83.299 - Other ovarian cyst, unspecified side Category: Medical Plan: Total time I personally spent on visit and management today: ?20 minutes. Time spent included review of pertinent office notes in the electronic health record; review of laboratory and imaging results; review of personal family medical history; performing physical exam; discussing diagnosis and plan of care with the patient; documenting the encounter in the EMR. Plan Ultrasound rescheduled, we will notify radiology department to move appointment up to this week status if available. Follow up in person for test results. The patient expressed understanding and agreement with the plan of care. All of her questions and concerns were addressed to the best of my ability. Orders: Orders AMB HCG Urine Test Today Z32.02 - Encounter for test, result negative AMB Urinalysis Dipstick Today R10.2 - Pelvic and perineal pain MM tomosynthesis screening BI Today Z12.31 - Encounter for screening mammogram for malignant neoplasm of breast Complete Blood Count no Diff Today N92.6 - Irregular menstruation, unspecified Thyroid Stimulating Hormone Today N92.1 - Excessive and frequent menstruation with irregular cycle, N92.6 - Irregular menstruation, unspecified Coding Level of Care Code Est Pt Level 2 (43124) Est Pt Prev Care 40-64y(31569) Diagnoses Well woman exam with routine gynecological exam Z01.419 Irregular menses N92.6 Pelvic pain R10.2 Complex ovarian cyst N83.299
[2025-03-03 15:32] VITALS: BP 116/74
--- OUTSIDE RECORDS SUMMARY | 2025-03-03 16:58 | XMS_ITS | Clinical Summary ---
Author Organization [employer] [facility] Address [address] [place] [address] Care Team Providers Care Seat Mender Name Role Phone Unavailable Primary Care Provider Unavailabl e Allergies Active Allergy Reactions Criticality Noted Date Comments Aspirin Rash Low 01/04/2024 Medications ferrous sulfate 324 (65 Fe) MG EC tablet Take 324 mg by mouth Once per day. 09/26/2023 Active Active Problems Problem Noted Date Diagnosed Date Anemia 05/17/2022 Social History Tobacco Use Types Packs/Day Years [...] Sign Reading Time Taken Comments Blood Pressure 110/82 08/07/2024 10:35 AM EDT Pulse 76 08/07/2024 10:35 AM EDT Temperature - - Respiratory Rate - - Oxygen Saturation - - Inhaled Oxygen Concentration - - Weight - - Height - - Body Mass Index - - Plan of Treatment Health Maintenance Due Date Last Done Comments CT Colonography 1979 Colonoscopy 1979 Colorectal Cancer Screening 1979 Depression Screening 1979 FIT DNA/Cologuard 1979 FIT 1979 FOBT 1979 HIV Screening 1980 SDOH Screening 1980 Sigmoidoscopy 1979 Disability Screening 1979 Alcohol/Substance Use Screening 1991 Family Planning (PISQ) 07/09/1994 HPV Vaccines (1 - 3-dose series) 07/09/1994 Hepatitis C Screening 07/09/1997 DTaP/Tdap/Td Vaccines (1 - Tdap) 07/09/1998 Hepatitis B Vaccines (1 of 3 - 19+ 3-dose series) 07/09/1998 Pap Smear 07/09/2000 Cervical Cancer Screening 07/09/2009 HPV/Cotest 07/09/2009 Mammogram 2019 Dental Prophylaxis 09/12/2019 03/13/2019, 09/08/2013 Dental Oral Exam 07/17/2024 01/17/2024, , 08/20/2013 COVID-19 Vaccine ( - 2023- season) 2024 Influenza Vaccine (#1) 2024 Dental X-Ray: Bitewings 03/20/2025 03/19/20 24, 01/17/2024, 01/04/2024, Additional history exists Tobacco Screening 08/07/2025 08/07/2024 Dental X-Ray: Full Mouth 01/17/2027 01/17/2024, 07/24 [...] patient's age to complete this topic Meningococcal B Vaccine Aged Out No l onger eligible based on patient's age to complete this topic Meningococcal Vaccine Aged Out No luis fernando sully eligible based on patient's age to complete this topic Pneumococcal Vaccine: Pediatrics (0 to 5 Years) and At-Risk Patients (6 to 49) Years Aged Out No longer eligible based on patient's age to complete this topic RSV under 20 months Aged Out No longe r eligible based on patient's age to complete this topic Rotavirus Vaccines Aged Out No longer eligible based on patient's age to complete this topic Procedures Procedure Name Priority Date/Time Associated Diagnosis Comments BITEWING - SINGLE RADIOGRAPHIC IMAGE Routine 03/19/2024 1:00 PM EST Periapical abscess with sinus Necrosis of dental pulp INTRAORAL - COMPLETE SERIES OF RADIOGRAPHIC IMAGES Routine 01/17/2024 10:30 [...]
--- OUTSIDE RECORDS SUMMARY | 2025-03-03 16:58 | XMS_ITS | Encounter Summary ---
Author Organization [employer] [facility] Address [address] [place] [address] Care Team Providers Care Word Processor Operator Name Role Phone Unavailable Primary Care [...]
== END 2025-03-04 14:43 | disposition home or self-care (01) ==
LOC: HO.HWS 15:15
PROVIDERS: PCP Internal Medicine; Visit Provider Advanced Practice Midwife
DX: Z01.419 Encounter for gynecological examination (general) (routine) without abnormal findings (principal); N92.6 Irregular menstruation, unspecified; R10.20 Pelvic and perineal pain unspecified side; N83.299 Other ovarian cyst, unspecified side; Z32.02 Encounter for pregnancy test, result negative
CPT/HCPCS: 99212; 99396; 99459

== ENCOUNTER 2025-03-03 15:35 | Outpatient (REF) | payer OTHER, SELFPAY ==
[2025-03-04 03:09] LABS: Bacterial Vaginosis PCR NEGATIVE (Negative); Candida Group PCR NOT DETECTED (Not Detect); Candida glab krusei PCR NOT DETECTED (Not Detect); Trichomonas vaginalis PCR NOT DETECTED (Not Detect)
[2025-03-04 03:40] LABS: CT PCR NOT DETECTED (Not Detect.); NG PCR NOT DETECTED (Not Detect.)
== END 2025-03-03 15:36 | disposition home or self-care (01) ==
LOC: HO.LNP 15:35
PROVIDERS: Visit Provider Advanced Practice Midwife
DX: R10.20 Pelvic and perineal pain unspecified side (principal); Z20.2 Contact with and (suspected) exposure to infections with a predominantly sexual mode of transmission; Z11.51 Encounter for screening for human papillomavirus (HPV)
CPT/HCPCS: 81515; 87491; 87591; 87626; 88175

== ENCOUNTER 2025-03-12 13:55 | Outpatient (REF) | payer OTHER, SELFPAY ==
--- NOTE | ~2025-03-12 | US_ITS ---
EXAMINATION: US PELVIS TRANSABDOMINAL AND TRANSVAGINAL HISTORY: N83.299 - Other ovarian cyst, unspecified side COMPARISON: Comparison is made with the prior examination dated 04/02/2024. TECHNIQUE: Transabdominal and endovaginal real-time 2D mercedes-scale ultrasound was performed. FINDINGS: Uterus: The uterus is normal in size, measuring 7.5 x 4.8 x 5.8 cm. Myometrium has a normal echotexture. Again seen is an anterior fibroid measuring 5 x 6 x 6 mm (previously 5 x 4 x 7 mm) Endometrium: The endometrial stripe measures 5 mm in thickness. Right ovary: The right ovary measures 2.4 x 1.8 x 2.4 cm. The right ovary is normal in size and echotexture. Left ovary: The left ovary measures 3.1 x 0.9 x 1.6 cm. The left ovary is normal in size and echotexture. Pelvic fluid: none. US/US pelvic and transvaginal IMPRESSION: 6 mm anterior uterine fibroid. Otherwise unremarkable pelvic ultrasound. The previously seen complex appearing left ovarian cyst has resolved. Electronically signed by: Zachary Mancia MD 03/12/2025 02:31 PM [facility]
--- OUTSIDE RECORDS SUMMARY | 2025-03-12 19:22 | XMS_ITS | Encounter Summary ---
Author Organization [employer] [facility] Address [address] [place] [address] Care Team Providers Care Inspector Assembly Name Role Phone Unavailable Primary Care Provider [...]
--- OUTSIDE RECORDS SUMMARY | 2025-03-12 19:22 | XMS_ITS | Clinical Summary ---
Author Organization [employer] [facility] Address [address] [place] [address] Care Team Providers Care Safety Inspector Name Role Phone Unavailable Primary Care Provider [...] 01/17/2024, , 08/20/2013 COVID-19 Vaccine ( - 2024- season) 2024 Influenza Vaccine (#1) 2024 Dental [...]
== END 2025-03-12 13:56 | disposition home or self-care (01) ==
LOC: HO.HMGCX 13:55
PROVIDERS: PCP Internal Medicine; Visit Provider Advanced Practice Midwife
DX: N83.299 Other ovarian cyst, unspecified side (principal)
CPT/HCPCS: 76830; 76856

== ENCOUNTER → 2025-03-12 13:57 | Outpatient (BNV) | payer OTHER, SELFPAY | PROVIDERS: PCP Internal Medicine; Visit Provider Radiology Diagnostic Radiology | DX: D25.9 Leiomyoma of uterus, unspecified (principal) | CPT/HCPCS: 76830; 76856 ==

== ENCOUNTER 2025-03-31 13:07 | Outpatient (AMB) | payer OTHER, SELFPAY ==
--- NOTE | 2025-03-31 13:07 | MHC.OFFVIS ---
Intake Visit Reasons: U/S f/u Credit Product Analyst Required: Yes Credit Product Analyst Language: Care Program Resident Services: Credit Product Analyst Present (in person) Credit Product Analyst Name: Malathi GILMORE Cripple Worker: Cripple Worker Present Allergies aspirin (ASPIRIN) Allergy (Intermediate, Verified 03/03/25 15:31) SWELLING penicillin V Allergy (Unknown, Verified 03/03/25 15:31) lip swelling amitriptyline Adverse Reaction (Unknown, Verified 03/03/25 15:31) Unknown Is last menstrual period known: Yes HPI Comments Details: Tele Health Visit Total time I personally spent on visit and management today: 17 minutes. Time spent included review of pertinent office notes in the electronic health record; review of laboratory and imaging results; review of personal family medical history; discussing diagnosis and plan of care with the patient; documenting the encounter in the EMR. Patient presents to discuss: Ultrasound follow up, history of complex ovarian cyst and fibroid. She has no resident caregiver concerns today. [facility] Medical History Pelvic pain Irregular menses Complex ovarian cyst Surgical History History of bilateral tubal ligation History of section Family History Father Diabetes Hypertension Mother Hypertension Rheumatoid arthritis Paternal Grandfather Throat cancer Social History Household Members: Spouse and Children Housing: Apartment Are you a primary caretaker resort to a significant other at home: No Do you presently have visiting nurse or other home services: No Alcohol intake: never Patient Tobacco Use Status: Never used Tobacco e-Cigarette/Vaping Use: Never Used Second Hand Smoke Exposure: No service: No Current occupational status: unemployed Cognitive needs: No Hearing needs: No Vision needs: No Female Reproductive History Menstrual Age of Menarche: 11 Review of Systems Const All systems reviewed & are unremarkable except as noted in HPI and below Endo Reports no additional complaints Physical Exam Const General: cooperative, healthy appearing and no acute distress Psych Appearance: well kempt Attitude: cooperative Thought process: Normal thought process present Telehealth Telehealth Telehealth Platform: [facility] Location of provider rendering services: practice address Location of patient: address on file Patient Identification confirmed using: Name, : No Telehealth method: video Patient verbally consented to treatment: Yes Patient verbally consented to billing insurance company: Yes Patient informed of any privacy concerns related to visit: Yes Results Reviewed Results Reviewed: [facility] [address] [place] [address] Ultrasound Report Signed Patient: Afshan Avitia MR#: [id number] : 1980 Acct:[id number] Age/Sex: 44 / F ADM Date: 03/12/25 Loc: HO.HMGCX Attending Dr: Carolin Bearden CNM Ordering Physician: Carolin Bearden CNM Date of Service: 03/12/25 Procedure(s): US pelvic and transvaginal Accession Number(s): [id number] cc: Carolin Bearden CNM; Barb Catherine MD~ Reason for Exam: N83.299 - Other ovarian cyst, unspecified side EXAMINATION: US PELVIS TRANSABDOMINAL AND TRANSVAGINAL HISTORY: N83.299 - Other ovarian cyst, unspecified side COMPARISON: Comparison is made with the prior examination dated 04/02/2024. TECHNIQUE: Transabdominal and endovaginal real-time 2D mercedes-scale ultrasound was performed. FINDINGS: Uterus: The uterus is normal in size, measuring 7.5 x 4.8 x 5.8 cm. Myometrium has a normal echotexture. Again seen is an anterior fibroid measuring 5 x 6 x 6 mm (previously 5 x 4 x 7 mm) Endometrium: The endometrial stripe measures 5 mm in thickness. Right ovary: The right ovary measures 2.4 x 1.8 x 2.4 cm. The right ovary is normal in size and echotexture. Left ovary: The left ovary measures 3.1 x 0.9 x 1.6 cm. The left ovary is normal in size and echotexture. Pelvic fluid: none. US/US pelvic and transvaginal IMPRESSION: 6 mm anterior uterine fibroid. Otherwise unremarkable pelvic ultrasound. The previously seen complex appearing left ovarian cyst has resolved. Electronically signed by: Zachary Mancia MD 03/12/2025 02:31 PM EST RP Dictated By: Zachary Mancia MD Signed By: <Electronically signed by Zachary Mancia MD in OV> 03/12/25 1431 DD/ 1401 TD/TT: 03/12/25 1425 Product Safety Specialist: Assessment & Plan Assessment & Plan (1) Complex ovarian cyst: Code(s): N83.299 - Other ovarian cyst, unspecified side Category: Medical Plan Discussed: Ultrasound findings- IMPRESSION: 6 mm anterior uterine fibroid. Otherwise unremarkable pelvic ultrasound. The previously seen complex appearing left ovarian cyst has resolved. Fibroid is stable, no need for further evaluation. Advised to call if there is any concerns with any pelvic pain or abnormal bleeding patterns. Annual exam scheduled for February 2026. The patient expressed understanding and agreement with the plan of care. All of her questions and concerns were addressed to the best of my ability. This note is constructed using voice recognition software. While every effort has been made to ensure accuracy, transcription typist errors may have been included. Coding Level of Care Code Tele Est Pt Level 3 (82421) Diagnoses Complex ovarian cyst N83.299
--- OUTSIDE RECORDS SUMMARY | 2025-03-31 17:18 | XMS_ITS | Clinical Summary ---
Author Organization [employer] [facility] Address [address] [place] [address] Care Team Providers Care Property Inspector Name Role Phone Unavailable Primary Care [...]
--- OUTSIDE RECORDS SUMMARY | 2025-03-31 17:18 | XMS_ITS | Encounter Summary ---
Author Organization [employer] [facility] Address [address] [place] [address] Care Team Providers Care Supervisor Shipping Name Role Phone Unavailable Primary Care Provider [...]
== END 2025-03-31 14:47 | disposition home or self-care (01) ==
LOC: HO.HWS 13:07
PROVIDERS: PCP Internal Medicine; Visit Provider Advanced Practice Midwife
DX: N83.299 Other ovarian cyst, unspecified side (principal)
CPT/HCPCS: 98004